=== PATIENT | female | born 1950 | race Caucasian/White ===

== ENCOUNTER 2017-05-28 19:49 | Emergency (ER) | payer OTHER ==
[~2017-05-28] VITALS: Ht 160 cm; Wt 113.4 kg
[~2017-05-28 19:49] MED LIST: ASPCH81X PO; FURO-85 PO; LISI40TA PO; METO-596 PO; RIVA1TAB4 PO
[2017-05-28 19:59] VITALS: TEMP 36.8; Ht 160 cm; Wt 113.4 kg
[2017-05-28] MEDS ORDERED: SODIUM CHLORIDE 0.9% 1000ML 1,000 ML IV STA (20:40)
[2017-05-28] MEDS ORDERED: SODIUM CHLORIDE 0.9% 1000ML 500 ML IV STA (20:40)
[2017-05-28] MEDS ORDERED: OPTIRAY 320 IV PRN (21:00)
[2017-05-28 21:26] LABS: BASO % 0.1 %; BASO ABS # 0.01 K/uL (0-0.2); COMPLETE YES; EOS % 0.6 %; HEMATOCRIT 37.8 % (37-47); IG% 0.4 %; LYMPH % 13.6 %; MEAN CELL VOLUME 79.2 fL (80-100); MEAN CORPUSCULAR HEMOGLOBIN 26.2 pg (25-34); MEAN CORPUSCULAR HGB CONC 33.1 g/dl (32-36); MEAN PLATELET VOLUME 10.3 fL (7.4-10.4); MONO % 12.9 %; NEUT % 72.4 %; PLATELET COUNT 252 K/uL (130-400); RED BLOOD COUNT 4.77 M/uL (4.2-5.4); WHITE BLOOD COUNT 8.11 K/uL (4.8-10.8)
[2017-05-28 21:47] LABS: BUN/CREATININE RATIO 16.7 (10-20); CALCIUM 8.8 mg/dl (8.5-10.1); CREATININE 0.85 mg/dl (0.60-1.20); POTASSIUM 3.9 mmol/L (3.5-5.1)
[2017-05-28 21:50] LABS: ALB/GLOB RATIO 0.7 (0.9-2)
--- NOTE | 2017-05-28 22:35 | DIAGNOSTIC IMAGING REPORT ---
ABD/PELVIS IV CONTRAST ONLY CT DOSE: 1572.88 mGy.cm HISTORY: Pain. Hernia. EVAL ABD PAIN/HERNIA/OBSTRUCTION TECHNIQUE: Multiaxial CT images of the abdomen and pelvis were performed following the use of intravenous contrast. A dose lowering technique was utilized adhering to the principles of ALARA. COMPARISON STUDY: 04/06/2012 FINDINGS: small nodular density left lung base unchanged from the prior study. Lung bases otherwise are clear. 1 cm hypodensity superior right hepatic lobe not present on the prior exam. Liver is otherwise slightly heterogeneous. Mild atrophy left kidney. Hypodensity posterior and anterior aspect inferior spleen. These are not present previously. Ventral hernia containing several nonobstructive loops of bowel. This appears to have partial repair. Lower right paracentral hernia containing loops of small bowel as well as colon also considered to be a nonobstructive finding. Bladder is midline but relatively collapsed. Bowel pattern within the abdomen and pelvis is considered nonobstructive. Subtle wall thickening of components of the a sigmoid colon which is right pelvic in location colon.. This may indicate a low-grade colitis no evidence for abscess collection or obstruction . IMPRESSION: 1. Mild colitis of the sigmoid colon. 2. No evidence for abscess collection or obstruction. 3. 2 ventral hernias 4. Several small hypodensities of the liver as well as spleen considered nonspecific considered to be nonobstructing. The above report was generated using voice recognition software. It may contain grammatical, syntax or spelling errors. Electronically signed by: Silverio Whalen M.D. 05/28/2017 10:34 PM Dictated Date/Time: 05/28/2017 10:27 PM
[2017-05-28 22:50] LABS: URINE APPEARANCE CLEAR (CLEAR); URINE BILIRUBIN NEG (NEG); URINE COLOR YELLOW; URINE EPITHELIAL CELL AUTO >30 /lpf (0-5); URINE NITRITE NEG (NEG); URINE PH 6.5 (4.5-7.5); UROBILINOGEN POS (NEG)
[2017-05-28 22:51] LABS: MANUAL MICROSCOPIC REQUIRED? NO; REVIEW REQ? NO
--- NOTE | 2017-05-28 23:03 | EMERGENCY ROOM VISIT NOTE ---
History First contact with patient: 20:13 Chief Complaint: ABDOMINAL PAIN Stated Complaint: PAIN Nursing Triage Summary: Patient reports severe pain in lower abdomen, states "I have a hernia and I might have ripped it" Patient states that she read on the internet that if she is having pain that it could be twisted and she wants to know if it's twisted. History of Present Illness Patient is a 66-year-old white female who presents to emergency department for evaluation of right lower abdominal pain that started yesterday. Patient has a history of morbid obesity and is status post gastric bypass surgery, with subsequent revision. She has 2 known ventral hernias. She states that she did have an attempt of a hernia repair with mesh, which failed, and subsequently the mesh was removed. She states that yesterday evening after she returned home from work, she noted discomfort in the right lower abdomen at the site of her lower hernia. She thought that she maybe twisted wrong rib did some heavy lifting and "tore the hernia." She states the pain was very severe caused her to feel nauseous and recall is a cold sweat. At its worst she would've rated it a 10/10. She states that she recently had some dental work and had Vicodin from the dentist. She took a total of 3 tablets last evening which knocked her out. When she woke up this morning, the pain was still present, but was not as severe. She rates it a 7/10 presently. She states it is located over the site of the hernia, and does not radiate. She put herself on clear liquids today, has not had any nausea or vomiting. She had some diarrhea last evening but otherwise a normal bowel movement yesterday morning. She denies any urinary symptoms. She denies a prior history of bowel obstructions. She's not had a fever. Review of Systems Review of systems as per HPI. All other systems reviewed were negative. 10 systems reviewed. Past Medical/Surgical History Medical Problems: (1) A-fib (2) Atrial fibrillation (3) CHF (congestive heart failure) (4) Chronic Hepatitis C W/O Hepatic Coma (5) Conjunctivitis, right eye (6) Depress Disorder-Unspec (7) Dermatitis (8) Dyspnea (9) Facial abrasion (10) Fluid overload (11) HTN (hypertension) (12) Hx Of Breast Malignancy (13) Hypertension (14) Hypertension Nos (15) Left shoulder pain (16) Morbid Obesity (17) Physical deconditioning (18) Pyelonephritis Nos (19) Wrist sprain Surgical Problems: (1) History of hernia repair (2) Hx of cholecystectomy (3) Intestinal Bypass Status Electronic medical records are reviewed and summarized as above/below. See Problem List. Family History Diabetes mellitus Heart disease Hypertension Social History Smoking Status: Never Smoker Alcohol Use: none Drug Use: none Marital Status: single Housing Status: unknown Occupation Status: employed Current/Historical Medications Scheduled Aspirin (Aspirin Chewable), 243 MG PO DAILY Lisinopril (Zestril), 40 MG PO DAILY Metoprolol Tartrate (Lopressor), 100 MG PO DAILY Physical Exam Vital Signs Date Time Temp Pulse Resp B/P (MAP) Pulse Ox O2 Delivery O2 Flow Rate FiO2 05/28/17 21:51 87 20 137/98 98 Room Air 05/28/17 19:59 36.8 98 18 161/106 97 Room Air Physical Exam CONSTITUTIONAL: Patient is obese 66-year-old white female who is awake and alert and in no acute distress. NECK: No bruits auscultated. Supple without lymphadenopathy. No thyromegaly. No meningeal signs. Full active range of motion without discomfort. CARDIOVASCULAR: Regular rate and rhythm, with normal S1 and S2, no murmur or gallop or rub is heard. No carotid bruits auscultated. No JVD. Peripheral pulses easy to palpable. RESPIRATORY: Breath sounds equal and clear to auscultation without wheezes, rales, or rhonchi heard. Full and equal chest expansion without accessory muscle use or retractions. GI: Bowel sounds are present. Multiple well-healed surgical scars are noted. Abdomen is soft, nontender, nondistended. Palpable ventral hernia noted in the epigastric region. She also has a right paracentral hernia noted in the mid abdomen. Hernias are soft, nontender. No organomegaly. No pulsatile masses. No guarding or rebound. MUSCULOSKELETAL: Full range of motion of extremities x 4 with good strength. No cyanosis, edema, joint tenderness or swelling. No deformity. INTEGUMENTARY: No lesions or rash, normal skin turgor. NEUROLOGICAL: Alert, oriented, and cooperative. Cranial nerves, sensation and strength grossly intact. Pupils round, equal, and react to light, EOMs are full. LYMPH: No lymphadenopathy. Medical Decision & Procedures ER Provider Diagnostic Interpretation: ABD/PELVIS IV CONTRAST ONLY CT DOSE: 1572.88 mGy.cm HISTORY: Pain. Hernia. EVAL ABD PAIN/HERNIA/OBSTRUCTION TECHNIQUE: Multiaxial CT images of the abdomen and pelvis were performed following the use of intravenous contrast. A dose lowering technique was utilized adhering to the principles of ALARA. COMPARISON STUDY: 04/06/2012 FINDINGS: small nodular density left lung base unchanged from the prior study. Lung bases otherwise are clear. 1 cm hypodensity superior right hepatic lobe not present on the prior exam. Liver is otherwise slightly heterogeneous. Mild atrophy left kidney. Hypodensity posterior and anterior aspect inferior spleen. These are not present previously. Ventral hernia containing several nonobstructive loops of bowel. This appears to have partial repair. Lower right paracentral hernia containing loops of small bowel as well as colon also considered to be a nonobstructive finding. Bladder is midline but relatively collapsed. Bowel pattern within the abdomen and pelvis is considered nonobstructive. Subtle wall thickening of components of the a sigmoid colon which is right pelvic in location colon.. This may indicate a low-grade colitis no evidence for abscess collection or obstruction . IMPRESSION: 1. Mild colitis of the sigmoid colon. 2. No evidence for abscess collection or obstruction. 3. 2 ventral hernias 4. Several small hypodensities of the liver as well as spleen considered nonspecific considered to be nonobstructing. Laboratory Results 05/28/17 21:16 Red Blood Count 4.77, Mean Corpuscular Volume 79.2, Mean Corpuscular Hemoglobin 26.2, Mean Corpuscular Hemoglobin Concent 33.1, Mean Platelet Volume 10.3, Neutrophils (%) (Auto) 72.4, Lymphocytes (%) (Auto) 13.6, Monocytes (%) (Auto) 12.9, Eosinophils (%) (Auto) 0.6, Basophils (%) (Auto) 0.1, Neutrophils # (Auto ) 5.87, Lymphocytes # (Auto) 1.10, Monocytes # (Auto) 1.05, Eosinophils # (Auto ) 0.05, Basophils # (Auto) 0.01 05/28/17 21:16 Test 05/28/17 21:16 05/28/17 22:25 White Blood Count 8.11 K/uL (4.8-10.8) Red Blood Count 4.77 M/uL (4.2-5.4) Hemoglobin 12.5 g/dL (12.0-16.0) Hematocrit 37.8 % (37-47) Mean Corpuscular Volume 79.2 fL (80-100) Mean Corpuscular Hemoglobin 26.2 pg (25-34) Mean Corpuscular Hemoglobin Concent 33.1 g/dl (32-36) Platelet Count 252 K/uL (130-400) Mean Platelet Volume 10.3 fL (7.4-10.4) Neutrophils (%) (Auto) 72.4 % Lymphocytes (%) (Auto) 13.6 % Monocytes (%) (Auto) 12.9 % Eosinophils (%) (Auto) 0.6 % Basophils (%) (Auto) 0.1 % Neutrophils # (Auto) 5.87 K/uL (1.4-6.5) Lymphocytes # (Auto) 1.10 K/uL (1.2-3.4) Monocytes # (Auto) 1.05 K/uL (0.11-0.59) Eosinophils # (Auto) 0.05 K/uL (0-0.5) Basophils # (Auto) 0.01 K/uL (0-0.2) RDW Standard Deviation 52.1 fL (36.4-46.3) RDW Coefficient of Variation 18.1 % (11.5-14.5) Immature Granulocyte % (Auto) 0.4 % Immature Granulocyte # (Auto) 0.03 K/uL (0.00-0.02) Anion Gap 5.0 mmol/L (3-11) Est Creatinine Clear Calc Drug Dose 81.1 ml/min Estimated GFR () 83.9 Estimated GFR (Non- 72.4 BUN/Creatinine Ratio 16.7 (10-20) Calcium Level 8.8 mg/dl (8.5-10.1) Total Bilirubin 2.9 mg/dl (0.2-1) Aspartate Amino Transf (AST/SGOT) 24 U/L (15-37) Alanine Aminotransferase (ALT/SGPT) 19 U/L (12-78) Alkaline Phosphatase 95 U/L (45-117) Total Protein 7.1 gm/dl (6.4-8.2) Albumin 3.0 gm/dl (3.4-5.0) Globulin 4.1 gm/dl (2.5-4.0) Albumin/Globulin Ratio 0.7 (0.9-2) Lipase 113 U/L (73-393) Urine Color YELLOW Urine Appearance CLEAR (CLEAR) Urine pH 6.5 (4.5-7.5) Urine Specific [place] 1.010 (1.000-1.030) Urine Protein NEG (NEG) Urine Glucose (UA) NEG (NEG) Urine Ketones NEG (NEG) Urine Occult Blood NEG (NEG) Urine Nitrite NEG (NEG) Urine Bilirubin NEG (NEG) Urine Urobilinogen POS (NEG) Urine Leukocyte Esterase MODERATE (NEG) Urine WBC (Auto) 10-30 /hpf (0-5) Urine RBC (Auto) 0-4 /hpf (0-4) Urine Hyaline Casts (Auto) 1-5 /lpf (0-5) Urine Epithelial Cells (Auto) >30 /lpf (0-5) Urine Bacteria (Auto) NEG (NEG) Medications Administered Medications (Trade) Dose Ordered Sig/Miranda Route Start Time Stop Time Status Last Admin Dose Admin Sodium Chloride 500 ml @ 999 mls/hr Q31M STAT IV 05/28/17 20:40 05/28/17 21:10 DC 05/28/17 20:40 999 MLS/HR Sodium Chloride 1,000 ml @ 250 mls/hr Q4H STAT IV 05/28/17 20:40 05/29/17 00:39 05/28/17 21:04 250 MLS/HR ED Course The patient was seen and evaluated as above. Her old records are reviewed. IV lock was initiated and she was hydrated with normal saline solution. CBC with differential, CMP, lipase and urinalysis were collected. CT scan of the abdomen and pelvis with IV contrast was ordered to evaluate her abdominal pain. Laboratory studies noted a normal white count at 8100, no left shift noted. She is not anemic. Platelet count is normal. Chemistries noted normal electrolytes and renal functions. She has slight elevation of her total bilirubin, remainder of her LFTs are within normal limits. Lipase is not elevated. Renal function is normal. Urinalysis notes moderate leuk esterase and WBCs with greater than 30 epithelial cells indicative of contamination. No other indicators for infection are noted. CT scan noted a ventral hernia containing several nonobstructive loops of bowel and a lower right paracentral hernia containing loops of small bowel and colon, also nonobstructive in nature. There was subtle wall thickening of components of the sigmoid colon which is in the right pelvic location, could be indicative of a low-grade colitis. There is no evidence for abscess collection or obstruction. The patient was reassessed. She was made aware of the results of her laboratory and diagnostic imaging studies. Given the findings consistent with a sigmoid colitis, with a sigmoid noted in the right pelvic region, this could correlate with the patient's pain. She certainly does not have any evidence for incarcerated hernia, no bowel obstruction secondary to the hernias, which was her primary concern. The remainder of her abdominal CT is otherwise unremarkable. Laboratory and diagnostic imaging studies were reviewed with attending physician. Conservative care measures were discussed. She was encouraged to follow a clear liquid diet, use [id number] medications, and follow closely with her primary care provider this week for recheck. She expressed understanding of this and was agreeable. Differential diagnoses entertained included UTI, pyelonephritis, renal colic, bowel obstruction, incarcerated hernia, perforation, abscess, appendicitis, ovarian cyst, ovarian torsion, mass or malignancy, infectious versus inflammatory colitis/enteritis, food borne illness, among others. Medical Decision See Emergency Department course. Medication Reconcilliation Current Medication List: was personally reviewed by me Blood Pressure Screening Patient's blood pressure: Elevated blood pressure Blood pressure disposition: Elevated BP felt to be situational Impression Primary Impression: Right sided abdominal pain Departure Information Referrals Simón Bobo D.ONan (PCP) Patient Instructions [facility] Additional Instructions Acetaminophen(Tylenol) may be used for fever or pain. Use 1000mg every eight hours as needed. Avoid using more than 3000mg in a 24 hour period. This is available over the counter. Rest and drink plenty of fluids as tolerated. Slow sips of water or sports drinks are recommended instead of large amounts all at once. Continue current medications. Once your stomach is settled start with a clear liquid diet (jello, soup broth, etc.) and then advance as tolerated. You should avoid full, heavy meals for about 24 hrs from the time your symptoms resolved. Return to the ER immediately for worsening or persistent abdominal pain, vomiting, fevers, chest pains, difficulty breathing, black or bloody stools, worsening of your condition, or as needed. Follow up with your primary physician in 1-2 days for a recheck of your current condition.
--- NOTE | 2017-05-28 23:06 | EMERGENCY ROOM VISIT NOTE ---
ED Visit Note First contact with patient: 20:13 This Patient was discussed with the physician Case Management Assistant, Marilynn Méndez PA-C. The pertinent historical and physical exam findings were confirmed. I agree with the studies ordered and with the interpretations of these studies. I agree with the disposition and care plan.
[2017-05-28 23:19] VITALS: BP 151/79; PULSE 84; O2SAT 97
== END 2017-05-28 23:19 | disposition home or self-care (01) ==
LOC: C.EDB 19:50 → C.EDA 23:19
DX: R10.84 Generalized abdominal pain (principal); I48.91 Unspecified atrial fibrillation; I50.9 Heart failure, unspecified; F32.9 Major depressive disorder, single episode, unspecified; I10 Essential (primary) hypertension; E66.9 Obesity, unspecified; Z83.3 Family history of diabetes mellitus; Z82.49 Family history of ischemic heart disease and other diseases of the circulatory system; Z79.82 Long term (current) use of aspirin

== ENCOUNTER → 2017-11-25 | Outpatient (CLI) | payer OTHER ==
[~2017-11-25] MED LIST changes: +CIPR-255 PO; -FURO-85 PO; +MECL1TAB42 PO; -RIVA1TAB4 PO; +SULF800T23 PO
--- NOTE | 2017-11-25 11:03 | DIAGNOSTIC IMAGING REPORT ---
GI SERIES W/O KUB CLINICAL HISTORY: W/ KUBnausea. Vomiting. COMPARISON STUDY: None FLUOROSCOPY TIME: 1.9 minutes. FINDINGS: Patient initiates swallowing function well. There is evidence for a traction diverticulum the anterior aspect of the lower thoracic esophagus. Inferior to this is what appears to be a small linear contrast collection immediately adjacent and attached to the distal esophagus medially proximal to the gastroesophageal junction. Possibility of a small laceration is considered. Contrast does not extend further from the lumen suggests this potentially is a walled off laceration versus postoperative change. There is good flow of contrast to the small bowel. There are no obstructive changes. Proximal small bowel is unremarkable. IMPRESSION: 1. Postoperative changes consistent with a prior gastroplasty 2. Immediately superior to the gastroesophageal junction is what appears to be a small short segment laceration of the posterior esophageal mucosa . This may also represent components of a postoperative basis of the operative procedure. No evidence for free spill of contrast extrinsic to this site. Endoscopic evaluation is suggested. 3. 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 The above report was generated using voice recognition software. It may contain grammatical, syntax or spelling errors. Electronically signed by: Silverio Whalen M.D. 11/25/2017 11:02 AM Dictated Date/Time: 11/25/2017 10:59 AM
== END | disposition home or self-care (01) ==
LOC: C.RAD 10:16
PROVIDERS: ATTEND Surgery
DX: K91.1 Postgastric surgery syndromes (principal); K22.5 Diverticulum of esophagus, acquired

== ENCOUNTER 2017-11-27 17:40 | Emergency (ER) | payer OTHER ==
[~2017-11-27] VITALS: Ht 160 cm; Wt 112.3 kg
[~2017-11-27 17:40] MED LIST changes: -CIPR-255 PO; -MECL1TAB42 PO
[2017-11-27 17:57] VITALS: TEMP 36.9
[2017-11-27] MEDS ORDERED: SODIUM CHLORIDE 0.9% 1000ML 1,000 ML IV STA (18:40)
--- NOTE | 2017-11-27 18:42 | EMERGENCY ROOM VISIT NOTE ---
History Report prepared by Melinda: Chepe Mahan Under the Supervision of: Dr. Darren Rios M.D. First contact with patient: 18:19 Chief Complaint: DIZZY Stated Complaint: DIZZY, COLD SWEAT Nursing Triage Summary: Patient woke up today and became really dizzy. Patient states she is only dizzy when she tries to stand up. History of anemia with need for 4 previous transfusions. Currently being treated for a staph infection on her foot. History of Present Illness The patient is a 67 year old female who presents to the Emergency Room with complaints of being intermittent dizzy since yesterday. She describes the dizziness as "the room spinning." She notes that she also became nauseous and diaphoretic, but did not vomit. When she sit up from a lying position she gets a headache. The patient states that she has been anemic in the past and has had blood transfusions. Source of History: patient Onset: [place] Position: head Quality: other (Dizziness) Timing: intermittent Associated Symptoms: + diaphoresis, + nausea, No vomiting Review of Systems See HPI for pertinent positives & negatives. A total of 10 systems reviewed and were otherwise negative. Past Medical & Surgical Medical Problems: (1) A-fib (2) Atrial fibrillation (3) CHF (congestive heart failure) (4) Chronic Hepatitis C W/O Hepatic Coma (5) Conjunctivitis, right eye (6) Depress Disorder-Unspec (7) Dermatitis (8) Dyspnea (9) Facial abrasion (10) Fluid overload (11) HTN (hypertension) (12) Hx Of Breast Malignancy (13) Hypertension (14) Hypertension Nos (15) Left shoulder pain (16) Morbid Obesity (17) Physical deconditioning (18) Pyelonephritis Nos (19) Wrist sprain Surgical Problems: (1) History of hernia repair (2) Hx of cholecystectomy (3) Intestinal Bypass Status Family History Diabetes mellitus Heart disease Hypertension Social History Smoking Status: Never Smoker Alcohol Use: none Drug Use: none Marital Status: single Housing Status: unknown Occupation Status: employed Current/Historical Medications Scheduled Aspirin (Aspirin Chewable), 243 MG PO DAILY Ciprofloxacin Hcl (Cipro), 1 TAB PO BID Lisinopril (Zestril), 40 MG PO DAILY Metoprolol Tartrate (Lopressor), 100 MG PO DAILY Sulfa/Trimethoprim (Bactrim Ds 800MG/160MG), 1 TAB PO BID Scheduled PRN Meclizine Hcl (Meclizine Hcl), 1 TAB PO TID PRN for Dizziness or Vertigo Allergies Coded Allergies: Penicillins (Verified Allergy, Unknown, POSSIBLE REACTION, 11/27/17) Nickel (Unverified Adverse Reaction, Severe, ITCHING, 11/27/17) Physical Exam Vital Signs Date Time Temp Pulse Resp B/P (MAP) Pulse Ox O2 Delivery O2 Flow Rate FiO2 11/27/17 21:17 77 22 187/105 100 11/27/17 20:13 69 180/97 78 175/97 74 195/80 11/27/17 18:58 94 Room Air 11/27/17 18:58 94 Room Air 11/27/17 17:57 36.9 80 16 134/89 94 Room Air Physical Exam GENERAL: Awake, alert, well-appearing, in no acute distress HENT: Normocephalic, atraumatic. Oropharynx unremarkable. EYES: Normal conjunctiva. Sclera non-icteric. NECK: Supple. No nuchal rigidity. FROM. No JVD. RESPIRATORY: Clear to auscultation. CARDIAC: Regular rate, normal rhythm. Extremities warm and well perfused. Pulses equal. ABDOMEN: Soft, non-distended. No tenderness to palpation. No rebound or guarding. No masses. RECTAL: Deferred. MUSCULOSKELETAL: Chest examination reveals no tenderness. The back is symmetrical on inspection without obvious abnormality. There is no CVA tenderness to palpation. No joint edema. LOWER EXTREMITIES: Calves are equal size bilaterally and non-tender. No edema. No discoloration. NEURO: Normal sensorium. No sensory or motor deficits noted. SKIN: No rash or jaundice noted. Medical Decision & Procedures ER Provider Diagnostic Interpretation: Radiology results as stated below per my review and radiologist interpretation: HEAD WITHOUT CONTRAST (CT) CLINICAL HISTORY: 67 years-old Female with Pt c/o dizziness. Acute dizziness TECHNIQUE: Multiple axial CT images of the head were obtained without contrast. A dose lowering technique was utilized adhering to the principles of ALARA. CT DOSE: 614.27 mGy.cm COMPARISON: None. FINDINGS: No acute intracranial hemorrhage, midline shift, intracranial mass, hydrocephalus, territorial ischemia or abnormal extra-axial collection. Mild cerebral atrophy. Moderate degree of patchy multifocal ill-defined low-attenuation within the subcortical, deep and periventricular white matter of the cerebral hemispheres bilaterally. The calvarium is intact. 6 mm lucent lesion of the left frontal calvarium is likely benign with thin zone of transition. Hyperostosis frontalis internus. The paranasal sinuses, mastoid air cells, and middle ear cavities are clear. Soft tissues and orbits appear unremarkable. IMPRESSION: 1. No acute intracranial abnormality. 2. Moderate degree of patchy multifocal ill-defined low-attenuation within the subcortical, deep and periventricular white matter of the cerebral hemispheres bilaterally suggests chronic microvascular ischemic changes. The above report was generated using voice recognition software. It may contain grammatical, syntax or spelling errors. Electronically signed by: Ruiz Salcedo M.D. 11/27/2017 7:18 PM Dictated Date/Time: 11/27/2017 7:15 PM Laboratory Results 11/27/17 20:08 Red Blood Count 4.77, Mean Corpuscular Volume 80.5, Mean Corpuscular Hemoglobin 25.8, Mean Corpuscular Hemoglobin Concent 32.0, Mean Platelet Volume 10.5, Neutrophils (%) (Auto) 73.9, Lymphocytes (%) (Auto) 17.5, Monocytes (%) (Auto) 7.2, Eosinophils (%) (Auto) 1.0, Basophils (%) (Auto) 0.2, Neutrophils # (Auto) 4.66, Lymphocytes # (Auto) 1.10, Monocytes # (Auto) 0.45, Eosinophils # (Auto) 0.06, Basophils # (Auto) 0.01 11/27/17 20:08 Test 11/27/17 20:08 11/27/17 20:11 11/27/17 20:20 White Blood Count 6.29 K/uL (4.8-10.8) Red Blood Count 4.77 M/uL (4.2-5.4) Hemoglobin 12.3 g/dL (12.0-16.0) Hematocrit 38.4 % (37-47) Mean Corpuscular Volume 80.5 fL (80-100) Mean Corpuscular Hemoglobin 25.8 pg (25-34) Mean Corpuscular Hemoglobin Concent 32.0 g/dl (32-36) Platelet Count 248 K/uL (130-400) Mean Platelet Volume 10.5 fL (7.4-10.4) Neutrophils (%) (Auto) 73.9 % Lymphocytes (%) (Auto) 17.5 % Monocytes (%) (Auto) 7.2 % Eosinophils (%) (Auto) 1.0 % Basophils (%) (Auto) 0.2 % Neutrophils # (Auto) 4.66 K/uL (1.4-6.5) Lymphocytes # (Auto) 1.10 K/uL (1.2-3.4) Monocytes # (Auto) 0.45 K/uL (0.11-0.59) Eosinophils # (Auto) 0.06 K/uL (0-0.5) Basophils # (Auto) 0.01 K/uL (0-0.2) RDW Standard Deviation 56.1 fL (36.4-46.3) RDW Coefficient of Variation 19.1 % (11.5-14.5) Immature Granulocyte % (Auto) 0.2 % Immature Granulocyte # (Auto) 0.01 K/uL (0.00-0.02) Anion Gap 7.0 mmol/L (3-11) Est Creatinine Clear Calc Drug Dose 76.0 ml/min Estimated GFR () 78.8 Estimated GFR (Non- 68.0 BUN/Creatinine Ratio 12.4 (10-20) Calcium Level 8.8 mg/dl (8.5-10.1) Total Bilirubin 2.8 mg/dl (0.2-1) Direct Bilirubin 0.7 mg/dl (0-0.2) Aspartate Amino Transf (AST/SGOT) 26 U/L (15-37) Alanine Aminotransferase (ALT/SGPT) 22 U/L (12-78) Alkaline Phosphatase 103 U/L (45-117) Total Protein 8.1 gm/dl (6.4-8.2) Albumin 3.6 gm/dl (3.4-5.0) Thyroid Stimulating Hormone (TSH) 1.880 uIu/ml (0.300-4.500) Bedside Glucose 110 mg/dl (70-90) Urine Color YELLOW Urine Appearance CLEAR (CLEAR) Urine pH 6.5 (4.5-7.5) Urine Specific [place] 1.009 (1.000-1.030) Urine Protein NEG (NEG) Urine Glucose (UA) NEG (NEG) Urine Ketones NEG (NEG) Urine Occult Blood NEG (NEG) Urine Nitrite NEG (NEG) Urine Bilirubin NEG (NEG) Urine Urobilinogen NEG (NEG) Urine Leukocyte Esterase SMALL (NEG) Urine WBC (Auto) 5-10 /hpf (0-5) Urine RBC (Auto) 0-4 /hpf (0-4) Urine Hyaline Casts (Auto) 1-5 /lpf (0-5) Urine Epithelial Cells (Auto) >30 /lpf (0-5) Urine Bacteria (Auto) NEG (NEG) Labs reviewed by ED physician. Medications Administered Medications (Trade) Dose Ordered Sig/Miranda Route Start Time Stop Time Status Last Admin Dose Admin Sodium Chloride 1,000 ml @ 999 mls/hr Q1H1M STAT IV 11/27/17 18:40 11/27/17 19:40 DC 11/27/17 18:40 999 MLS/HR Meclizine HCl (Antivert Tab) 25 mg NOW STAT PO 11/27/17 18:43 11/27/17 18:44 DC 11/27/17 18:43 25 MG Ciprofloxacin (Cipro Tab) 500 mg NOW STAT PO 11/27/17 20:38 11/27/17 20:39 DC 11/27/17 20:55 500 MG ECG Per My Interpretation Indication: other (Dizzy) Rate (beats per minute): 61 Rhythm: atrial fibrillation Findings: T-wave inversion (Lateral) Comparison ECG Date: 08/01/2016 ED Course 1828: Past medical records reviewed. The patient was evaluated in room B2. A complete history and physical examination was performed. 0: Ordered Sodium Chloride 1000 mL @ 999 mL/hr IV. 1842: Ordered Meclizine HCl 25 mg PO. 2037: Ordered Ciprofloxacin 500 mg PO. 2101: Upon reexamination the patient is resting. I discussed results and treatment plan with the patient. She verbalizes agreement and understanding. The patient is ready for discharge. Medical Decision Differential diagnosis: Etiologies such as benign positional vertigo, dehydration, hypovolemia, anemia, tumor, infection, hypoglycemia, electrolyte abnormalities, cardiac sources, intracerebral event, toxicologic, neurologic, as well as others were entertained. This is a 67-year-old female who presents emergency department complaining of dizziness. The patient's story is consistent with benign positional vertigo. She has a normal CAT scan of the head. I will note the patient is in atrial fibrillation but she has been seen by her fruit cutter for previously. The patient does not wish to be on any blood thinners but takes an aspirin daily. She was given a normal saline bolus as well as meclizine here in the emergency department. Repeat examination revealed improvement in the patient's symptoms. The patient is already on Bactrim therefore I will not start any antibiotics pending urine culture results. The patient is feeling better and I feel can be safely discharged home on meclizine. Patient was in agreement with the treatment plan. Medication Reconcilliation Current Medication List: was personally reviewed by me Blood Pressure Screening Patient's blood pressure: Elevated blood pressure Blood pressure disposition: Referred to PCP Impression Primary Impression: UTI (urinary tract infection) Additional Impression: Vertigo Scribe Attestation The scribe's documentation has been prepared under my direction and personally reviewed by me in its entirety. I confirm that the note above accurately reflects all work, treatment, procedures, and medical decision making performed by me. Departure Information Dispostion Home / Self-Care Prescriptions Ciprofloxacin Hcl (CIPRO) 500 Mg Tab 1 TAB PO BID for 10 Days, #20 TAB Prov: Darren Rios MD 11/27/17 Meclizine Hcl (MECLIZINE HCL) 25 Mg Tab 1 TAB PO TID Y for Dizziness or Vertigo for 10 Days, #30 TAB Prov: Darren Rios MD 11/27/17 Referrals No Doctor, Assigned (PCP) Forms HOME CARE DOCUMENTATION FORM, IMPORTANT VISIT INFORMATION Patient Instructions My [facility] Additional Instructions You have been examined and treated today on an emergency basis only. This is not a substitute for, or an effort to provide, complete comprehensive medical care. It is impossible to recognize and treat all injuries or illnesses in a single emergency department visit. It is therefore important that you follow up closely with Dr Ocasio. Call as soon as possible for an appointment. Thank you for your time and consideration. I look forward to speaking with you again soon. Please don't hesitate to call us if you have any questions. Problem Qualifiers Primary Impression: UTI (urinary tract infection) Urinary tract infection type: acute cystitis Hematuria presence: with hematuria Qualified Codes: N30.01 - Acute cystitis with hematuria
[2017-11-27] MEDS ORDERED: MECLIZINE HCL 25 MG TAB PO STA (18:43)
[2017-11-27 18:58] VITALS: O2SAT 94; Ht 160 cm; Wt 112.3 kg
--- NOTE | 2017-11-27 19:19 | DIAGNOSTIC IMAGING REPORT ---
HEAD WITHOUT CONTRAST (CT) CLINICAL HISTORY: 67 years-old Female with Pt c/o dizziness. Acute dizziness TECHNIQUE: Multiple axial CT images of the head were obtained without contrast. A dose lowering technique was utilized adhering to the principles of ALARA. CT DOSE: 614.27 mGy.cm COMPARISON: None. FINDINGS: No acute intracranial hemorrhage, midline shift, intracranial mass, hydrocephalus, territorial ischemia or abnormal extra-axial collection. Mild cerebral atrophy. Moderate degree of patchy multifocal ill-defined low-attenuation within the subcortical, deep and periventricular white matter of the cerebral hemispheres bilaterally. The calvarium is intact. 6 mm lucent lesion of the left frontal calvarium is likely benign with thin zone of transition. Hyperostosis frontalis internus. The paranasal sinuses, mastoid air cells, and middle ear cavities are clear. Soft tissues and orbits appear unremarkable. IMPRESSION: 1. No acute intracranial abnormality. 2. Moderate degree of patchy multifocal ill-defined low-attenuation within the subcortical, deep and periventricular white matter of the cerebral hemispheres bilaterally suggests chronic microvascular ischemic changes. The above report was generated using voice recognition software. It may contain grammatical, syntax or spelling errors. Electronically signed by: Ruiz Salcedo M.D. 11/27/2017 7:18 PM Dictated Date/Time: 11/27/2017 7:15 PM
[2017-11-27 20:23] LABS: BASO % 0.2 %; BASO ABS # 0.01 K/uL (0-0.2); EOS ABS # 0.06 K/uL (0-0.5); HEMATOCRIT 38.4 % (37-47); HEMOGLOBIN 12.3 g/dL (12.0-16.0); IG# 0.01 K/uL (0.00-0.02); LYMPH % 17.5 %; MEAN CELL VOLUME 80.5 fL (80-100); MEAN CORPUSCULAR HEMOGLOBIN 25.8 pg (25-34); MEAN PLATELET VOLUME 10.5 fL (7.4-10.4); MONO % 7.2 %; MONO ABS # 0.45 K/uL (0.11-0.59); NEUT % 73.9 %; NEUT ABS # 4.66 K/uL (1.4-6.5); PLATELET COUNT 248 K/uL (130-400); RED CELL DISTRIBUTION WIDTH CV 19.1 % (11.5-14.5); RED CELL DISTRIBUTION WIDTH SD 56.1 fL (36.4-46.3); WHITE BLOOD COUNT 6.29 K/uL (4.8-10.8)
[2017-11-27] MEDS ORDERED: CIPROFLOXACIN 500 MG TAB PO STA (20:38)
[2017-11-27 20:41] LABS: ALBUMIN 3.6 gm/dl (3.4-5.0); CALCIUM 8.8 mg/dl (8.5-10.1); CREATININE 0.89 mg/dl (0.60-1.20); POTASSIUM 3.6 mmol/L (3.5-5.1)
[2017-11-27 20:52] LABS: TOTAL PROTEIN 8.1 gm/dl (6.4-8.2)
[2017-11-27] MEDS ORDERED: MECL1TAB42 PO (21:00)
[2017-11-27] MEDS ORDERED: CIPR-255 PO (21:00)
[2017-11-27 21:17] VITALS: BP 187/105; PULSE 77; O2SAT 100
== END 2017-11-27 21:18 | disposition home or self-care (01) ==
LOC: C.EDB 17:41
DX: N30.01 Acute cystitis with hematuria (principal); R42 Dizziness and giddiness; I10 Essential (primary) hypertension; I48.91 Unspecified atrial fibrillation; Z85.3 Personal history of malignant neoplasm of breast; Z98.890 Other specified postprocedural states; Z83.3 Family history of diabetes mellitus; Z82.49 Family history of ischemic heart disease and other diseases of the circulatory system; Z79.82 Long term (current) use of aspirin; Z79.899 Other long term (current) drug therapy

== ENCOUNTER 2018-09-09 19:12 | Inpatient (IN) ==
[2018-09-09] MEDS ORDERED: ALBUT/IPRATROP 3MG/0.5MG NEB 3 ML VIAL NEB STA (21:38)
[2018-09-09] MEDS ORDERED: FUROSEMIDE 40 MG/4 ML VIAL IV STA (21:42)
[2018-09-09 22:28] LABS: Mean Corpuscular Hgb Conc 31.6 g/dL (32-36)
--- NOTE | 2018-09-09 22:30 | XRay Report ---
XR chest 1V portable CLINICAL HISTORY: 68 years-old Female presenting with Sepsis. TECHNIQUE: Portable upright AP view of the chest was obtained. COMPARISON: 06/17/2018. FINDINGS: Cardiac silhouette moderately enlarged. Mitral annular calcification. Pulmonary vascular prominence. Mild bronchial wall thickening suggested. Patchy basilar predominant opacity, asymmetrically more pro minent on the right. No large effusion or pneumothorax. Osseous structures normal. Upper abdomen norm al. IMPRESSION: 1. Cardiomegaly with volume overload/congestive change. 2. Asymmetric patchy basilar predominant density on the right. This may represent a focal infiltrate /pneumonia versus asymmetric edema. Electronically signed by: Bebeto Rivers M.D. 09/09/2018 10:29 PM
[2018-09-09] MEDS ORDERED: OSELTAMIVIR PHOSPHATE 75 MG CAP PO STA (22:31)
[2018-09-09 22:37] LABS: INR 1.1 (0.9-1.1); Partial Thromboplastin Ratio 1.1; Partial Thromboplastin Time 28.5 Seconds (21.0-31.0)
[2018-09-09] MEDS ORDERED: cefTRIAXone SODIUM 1,000 MG/50 ML BAG IV STA (22:37)
[2018-09-09] MEDS ORDERED: AZITHROMYCIN 250 MG TAB PO ONE (22:37)
[2018-09-09 22:41] LABS: Hematocrit (blood only) 42.1 % (37-47); Hemoglobin 13.3 g/dL (12.0-16.0); Mean Corpuscular Volume 79.1 fL (80-100); RDW Coefficient of Variation 20.7 % (11.5-14.5); RDW Standard Deviation 59.3 fL (36.4-46.3); Red Blood Count 5.32 M/uL (4.2-5.4); White Blood Count 3.87 K/uL (4.8-10.8)
[2018-09-09 22:45] LABS: Alanine Aminotransferase 25 U/L (12-78); Aspartate Aminotransferase 54 U/L (15-37); Blood Urea Nitrogen 12 mg/dl (7-18); Carbon Dioxide 24 mmol/L (21-32); Chloride 103 mmol/L (98-107); Est GFR (African American) 85.2; Est GFR (Non-African American) 73.5; Glucose 94 mg/dl (70-99); Potassium 3.5 mmol/L (3.5-5.1); Sodium 137 mmol/L (136-145)
[2018-09-09 22:47] LABS: Appearance Urine Clear (Clear); Bacteria Urine Automated Negative (Negative); Bilirubin Urine Negative (Negative); Cast Urine Automated 0 /lpf (0-5); Color Urine Yellow; Glucose Urine UA Negative (Negative); Ketones Urine Negative (Negative); Leukocyte Esterase Urine 1+ (Negative); Nitrite Urine Negative (Negative); Protein Urine Negative (Negative); Specific Gravity Urine 1.007 (1.000-1.030); Urobilinogen Urine Negative (Negative); pH Urine 5.5 (4.5-7.5)
[2018-09-09 22:50] LABS: Albumin Globulin Ratio 0.6 (0.9-2); Alkaline Phosphatase 88 U/L (45-117); Bilirubin,Total 1.2 mg/dl (0.1-1); Globulin 4.6 gm/dl (2.5-4.0); NT Pro B Type Natriuretic Pept 3759 pg/ml (0-900); Total Protein 7.6 gm/dl (6.4-8.2)
[2018-09-09 23:08] LABS: Basophils # (auto) 0.06 K/uL (0-0.2); Basophils % (auto) 1.6 %; Immature Granulocytes # (auto) 0.03 K/uL (0.00-0.02); Immature Granulocytes % (auto) 0.8 %; Lymphocytes # (auto) 0.86 K/uL (1.2-3.4); Lymphocytes % (auto) 22.2 %; Monocytes # (auto) 0.47 K/uL (0.11-0.59); Monocytes % (auto) 12.1 %; Neutrophils # (auto) 2.45 K/uL (1.4-6.5); Neutrophils % (auto) 63.3 %; Ovalocytes 1+; Platelet Count 130 K/uL (130-400); Target Cells 1+
--- NOTE | 2018-09-10 00:29 | Emergency Department Note ---
History of Present Illness General Chief complaint: Respiratory Problems Stated complaint: dizzy History of Present Illness This 68-year-old presents to the ER complaining of dyspnea, productive cough and feeling ill Location: Generalized Quality: Dyspnea Severity: Moderate Duration: Past several days Timing: Past several days Context: Symptoms persisted and patient can barely walk because of the breathing and came in Modifying factors: better with nothing; worse with activity Patient states she lost her healthcare insurance and cannot afford her medications. She has not been taking her Lasix for her CHF. Patient states she is been coughing and feeling more short of breath. She is been feeling ill. Patient denies chest pain, abdominal pain, headache, neck stiffness, vomiting, diarrhea. Home Medications Home Medications Medication Instructions Recorded Confirmed Type Lopressor 50 mg PO DAILYBD 09/09/18 09/09/18 History Lopressor 100 mg PO DAILYBB 09/09/18 09/09/18 History apixaban [Eliquis] 5 mg PO BID 09/09/18 09/09/18 History aspirin 325 mg PO DAILY 09/09/18 09/09/18 History furosemide [Lasix] 40 mg PO DAILY 09/09/18 09/09/18 History lisinopril 40 mg PO DAILY 09/09/18 09/09/18 History Allergies Allergy/AdvReac Type Severity Reaction Status Date / Time Penicillins Allergy Unknown POSSIBLE Verified 06/17/18 22:33 REACTION nickel AdvReac Severe ITCHING Unverified 06/17/18 22:33 gluten AdvReac Unknown Diarrhea Verified 06/18/18 15:39 Past Med/Surg History Medical History Wrist sprain (Resolved) Facial abrasion (Resolved) Left shoulder pain (Resolved) Hypertension (Resolved) Dermatitis (Resolved) Fluid overload (Resolved) Atrial fibrillation (Resolved) Attention and concentration deficit Cancer Hypothyroidism Surgical History H/O bariatric surgery No pertinent past surgical history Family History Other No pertinent family history Social History Current Living Situation: Alone Other Information That Helps Us Care for You: No Feels Safe at Home: Yes Safety Concerns: Feels Safe At This Time Smoking Status: Never smoker Hx Alcohol Use: No Hx Substance Use: No Beliefs That Will Affect Care: None Communication Ability: Effective Review of Systems All systems reviewed & are unremarkable except as noted in HPI & below Physical Exam Vital Signs Vital Signs - 24 hr 09/09/18 20:22 09/09/18 21:48 09/09/18 23:06 Temperature 36.7 C Temperature Source Oral Oral Sepsis Recent Fever Within 48 Hours No Sepsis Action Taken by Nursing No Action Required Pulse Rate 94 H Pulse Rate [Left Apical] 110 H 124 H Pulse Rhythm [Left Apical] Pulse Strength [Left Apical] Respiratory Rate 22 24 24 Respiratory Effort / Characteristics Respiratory Depth Respiratory Pattern Blood Pressure 173/91 H Blood Pressure [Right Arm] 117/116 H 174/92 H Blood Pressure Mean 118 Blood Pressure Mean [Right Arm] 116 119 Blood Pressure Position [Right Arm] Pulse Oximetry 91 92 95 Oxygen Delivery Method Room Air Room Air Room Air 09/09/18 23:57 09/10/18 00:40 Temperature 36.7 C Temperature Source Oral Oral Sepsis Recent Fever Within 48 Hours Sepsis Action Taken by Nursing Pulse Rate Pulse Rate [Left Apical] 130 H 128 H Pulse Rhythm [Left Apical] Irregular Pulse Strength [Left Apical] Normal Respiratory Rate 24 24 Respiratory Effort / Characteristics Non-Labored Spontaneous SOB on Exertion Respiratory Depth Normal Respiratory Pattern Regular Blood Pressure Blood Pressure [Right Arm] 154/120 H 137/110 H Blood Pressure Mean Blood Pressure Mean [Right Arm] 131 119 Blood Pressure Position [Right Arm] Lying Pulse Oximetry 95 93 Oxygen Delivery Method Room Air Room Air VITALS: Vitals are noted on the nurse's note and reviewed by myself. Vital signs O2 sats of 90. GENERAL: White female working to breathe, in mild acute distress SKIN: The skin was without rashes or bruising. There is no tenting of the skin. Capillary reflex less than 2 seconds. HEAD: Normocephalic atraumatic. EARS: External auditory canals clear, tympanic membranes pearly rae without erythema or effusion bilaterally. EYES: Pupils equal round and reactive to light and accommodation. Conjunctivae without injection, sclerae without icterus. Extraocular movements intact. NOSE: Patent, turbinates without inflammation or discharge. No sinus tenderness. MOUTH: Mucous membranes moist. Pharynx without erythema or exudate. Uvula midline. Airway patent. Tongue does not deviate. NECK: Supple without nuchal rigidity. No lymphadenopathy. No thyromegaly. Cervical spine is nontender. No JVD. HEART: Tachycardic rate and rhythm LUNGS: Mild diffuse end expiratory wheezes, bibasilar rales. No retractions or accessory muscle use. ABDOMEN: Positive bowel sounds x 4. Normal tympanic percussion. Soft, nontender, without masses or organomegaly. Veliz sign negative. No guarding or rebound tenderness. No CVA tenderness MUSCULOSKELETAL: No muscle atrophy noted. +1 pitting edema up to mid tib-fib. NEURO: Patient was alert and oriented to person place and time. Normal sensation to light and sharp touch. No focal neurological deficits. Course Administered Medications Doxycycline Hyclate (Vibramycin) 100 mg PO BID HARJIT Stop: 09/17/18 00:53 Last Admin: 09/10/18 01:42 Dose: 100 mg Discontinued Medications Albuterol (Duoneb) 3 ml NEB NOW STA Stop: 09/09/18 21:39 Last Admin: 09/09/18 21:50 Dose: 3 ml Azithromycin (Zithromax) 500 mg PO NOW ONE Stop: 09/09/18 22:38 Last Admin: 09/09/18 22:44 Dose: 500 mg Furosemide (Lasix) 40 mg IV NOW STA Stop: 09/09/18 21:43 Last Admin: 09/09/18 21:53 Dose: 40 mg Ceftriaxone Sodium (Rocephin) 1,000 mg in 50 mls @ 100 mls/hr IV NOW STA Stop: 09/09/18 23:06 Last Infusion: 09/09/18 23:32 Dose: 0 mls/hr Admin: 09/09/18 22:44 Dose: 100 mls/hr Metoprolol Tartrate (Lopressor) 50 mg PO NOW STA Stop: 09/10/18 00:55 Last Admin: 09/10/18 01:42 Dose: 50 mg Oseltamivir Phosphate (Tamiflu) 75 mg PO NOW STA Stop: 09/09/18 22:32 Last Admin: 09/09/18 22:44 Dose: 75 mg Medical Decision Making Medical Records Attestation: I reviewed the patient's medical records. Home Medications Current Medication List: was personally reviewed by me Laboratory Data Attestation: I reviewed the patient's lab results. Result diagrams: 09/09/18 21:58 09/09/18 21:58 Lab Results 09/09/18 09/09/18 09/09/18 Range/Units 21:51 21:58 21:58 WBC 3.87 L (4.8-10.8) K/uL RBC 5.32 (4.2-5.4) M/uL Hgb 13.3 (12.0-16.0) g/dL Hct 42.1 (37-47) % MCV 79.1 L (80-100) fL MCH 25.0 (25-34) pg MCHC 31.6 L (32-36) g/dL RDW Std Deviation 59.3 H (36.4-46.3) fL RDW Coeff of Jennifer 20.7 H (11.5-14.5) % Plt Count 130 (130-400) K/uL Immature Gran % (Auto) 0.8 % Neut % (Auto) 63.3 % Lymph % (Auto) 22.2 % Putnam % (Auto) 12.1 % Eos % (Auto) 0.0 % Baso % (Auto) 1.6 % Immature Gran # (Auto) 0.03 H (0.00-0.02) K/uL Neut # (Auto) 2.45 (1.4-6.5) K/uL Lymph # (Auto) 0.86 L (1.2-3.4) K/uL Putnam # (Auto) 0.47 (0.11-0.59) K/uL Eos # (Auto) 0.00 (0-0.5) K/uL Baso # (Auto) 0.06 (0-0.2) K/uL Platelet Estimate Decreased (Normal) Target Cells 1+ Ovalocytes 1+ PT 11.0 (9.0-12.0) Seconds INR 1.1 (0.9-1.1) APTT 28.5 (21.0-31.0) Seconds PTT Ratio 1.1 Sodium (136-145) mmol/L Potassium (3.5-5.1) mmol/L Chloride (98-107) mmol/L Carbon Dioxide (21-32) mmol/L Anion Gap (3-11) BUN (7-18) mg/dl Creatinine (0.6-1.2) mg/dl Est Cr Clr Drug Dosing Est GFR ( Amer) Est GFR (Non-Af Amer) BUN/Creatinine Ratio (10-20) Glucose (70-99) mg/dl POC Lactic Acid Alpesh (0.90-1.70) mmol/L Calcium (8.5-10.1) mg/dl Magnesium (1.8-2.4) mg/dl Total Bilirubin (0.1-1) mg/dl AST (15-37) U/L ALT (12-78) U/L Alkaline Phosphatase (45-117) U/L POC Troponin I (0-0.045) ng/ml Troponin I (0-0.045) ng/ml NT-Pro-B Natriuret Pep (0-900) pg/ml Total Protein (6.4-8.2) gm/dl Albumin (3.4-5.0) gm/dl Globulin (2.5-4.0) gm/dl Albumin/Globulin Ratio (0.9-2) Urine Color Urine Appearance (Clear) Urine pH (4.5-7.5) Ur Specific Lovejoy (1.000-1.030) Urine Protein (Negative) Urine Glucose (UA) (Negative) Urine Ketones (Negative) Urine Blood (Negative) Urine Nitrite (Negative) Urine Bilirubin (Negative) Urine Urobilinogen (Negative) Ur Leukocyte Esterase (Negative) Urine WBC (Auto) (0-5) /hpf Urine RBC (Auto) (0-4) /hpf U Hyaline Cast (Auto) (0-5) /lpf U Epithel Cells (Auto) (0-5) /lpf Urine Bacteria (Auto) (Negative) Influenza Type A Ag Pos for Influ A A* (Neg) Influenza Type B Ag Neg for Influ B (Neg) 09/09/18 09/09/18 09/09/18 Range/Units 21:58 22:12 22:13 WBC (4.8-10.8) K/uL RBC (4.2-5.4) M/uL Hgb (12.0-16.0) g/dL Hct (37-47) % MCV (80-100) fL MCH (25-34) pg MCHC (32-36) g/dL RDW Std Deviation (36.4-46.3) fL RDW Coeff of Jennifer (11.5-14.5) % Plt Count (130-400) K/uL Immature Gran % (Auto) % Neut % (Auto) % Lymph % (Auto) % Putnam % (Auto) % Eos % (Auto) % Baso % (Auto) % Immature Gran # (Auto) (0.00-0.02) K/uL Neut # (Auto) (1.4-6.5) K/uL Lymph # (Auto) (1.2-3.4) K/uL Putnam # (Auto) (0.11-0.59) K/uL Eos # (Auto) (0-0.5) K/uL Baso # (Auto) (0-0.2) K/uL Platelet Estimate (Normal) Target Cells Ovalocytes PT (9.0-12.0) Seconds INR (0.9-1.1) APTT (21.0-31.0) Seconds PTT Ratio Sodium 137 (136-145) mmol/L Potassium 3.5 (3.5-5.1) mmol/L Chloride 103 (98-107) mmol/L Carbon Dioxide 24 (21-32) mmol/L Anion Gap 10.0 (3-11) BUN 12 (7-18) mg/dl Creatinine 0.83 (0.6-1.2) mg/dl Est Cr Clr Drug Dosing Not Reportable Est GFR ( Amer) 85.2 Est GFR (Non-Af Amer) 73.5 BUN/Creatinine Ratio 14.0 (10-20) Glucose 94 (70-99) mg/dl POC Lactic Acid Alpesh 2.02 H (0.90-1.70) mmol/L Calcium 8.0 L (8.5-10.1) mg/dl Magnesium 2.0 (1.8-2.4) mg/dl Total Bilirubin 1.2 H (0.1-1) mg/dl AST 54 H (15-37) U/L ALT 25 (12-78) U/L Alkaline Phosphatase 88 (45-117) U/L POC Troponin I < 0.03 (0-0.045) ng/ml Troponin I (0-0.045) ng/ml NT-Pro-B Natriuret Pep 3759 H (0-900) pg/ml Total Protein 7.6 (6.4-8.2) gm/dl Albumin 3.0 L (3.4-5.0) gm/dl Globulin 4.6 H (2.5-4.0) gm/dl Albumin/Globulin Ratio 0.6 L (0.9-2) Urine Color Urine Appearance (Clear) Urine pH (4.5-7.5) Ur Specific Lovejoy (1.000-1.030) Urine Protein (Negative) Urine Glucose (UA) (Negative) Urine Ketones (Negative) Urine Blood (Negative) Urine Nitrite (Negative) Urine Bilirubin (Negative) Urine Urobilinogen (Negative) Ur Leukocyte Esterase (Negative) Urine WBC (Auto) (0-5) /hpf Urine RBC (Auto) (0-4) /hpf U Hyaline Cast (Auto) (0-5) /lpf U Epithel Cells (Auto) (0-5) /lpf Urine Bacteria (Auto) (Negative) Influenza Type A Ag (Neg) Influenza Type B Ag (Neg) 09/09/18 09/10/18 Range/Units 22:32 01:03 WBC (4.8-10.8) K/uL RBC (4.2-5.4) M/uL Hgb (12.0-16.0) g/dL Hct (37-47) % MCV (80-100) fL MCH (25-34) pg MCHC (32-36) g/dL RDW Std Deviation (36.4-46.3) fL RDW Coeff of Jennifer (11.5-14.5) % Plt Count (130-400) K/uL Immature Gran % (Auto) % Neut % (Auto) % Lymph % (Auto) % Putnam % (Auto) % Eos % (Auto) % Baso % (Auto) % Immature Gran # (Auto) (0.00-0.02) K/uL Neut # (Auto) (1.4-6.5) K/uL Lymph # (Auto) (1.2-3.4) K/uL Putnam # (Auto) (0.11-0.59) K/uL Eos # (Auto) (0-0.5) K/uL Baso # (Auto) (0-0.2) K/uL Platelet Estimate (Normal) Target Cells Ovalocytes PT (9.0-12.0) Seconds INR (0.9-1.1) APTT (21.0-31.0) Seconds PTT Ratio Sodium (136-145) mmol/L Potassium (3.5-5.1) mmol/L Chloride (98-107) mmol/L Carbon Dioxide (21-32) mmol/L Anion Gap (3-11) BUN (7-18) mg/dl Creatinine (0.6-1.2) mg/dl Est Cr Clr Drug Dosing Est GFR ( Amer) Est GFR (Non-Af Amer) BUN/Creatinine Ratio (10-20) Glucose (70-99) mg/dl POC Lactic Acid Alpesh (0.90-1.70) mmol/L Calcium (8.5-10.1) mg/dl Magnesium (1.8-2.4) mg/dl Total Bilirubin (0.1-1) mg/dl AST (15-37) U/L ALT (12-78) U/L Alkaline Phosphatase (45-117) U/L POC Troponin I (0-0.045) ng/ml Troponin I 0.036 (0-0.045) ng/ml NT-Pro-B Natriuret Pep (0-900) pg/ml Total Protein (6.4-8.2) gm/dl Albumin (3.4-5.0) gm/dl Globulin (2.5-4.0) gm/dl Albumin/Globulin Ratio (0.9-2) Urine Color Yellow Urine Appearance Clear (Clear) Urine pH 5.5 (4.5-7.5) Ur Specific Lovejoy 1.007 (1.000-1.030) Urine Protein Negative (Negative) Urine Glucose (UA) Negative (Negative) Urine Ketones Negative (Negative) Urine Blood Trace H (Negative) Urine Nitrite Negative (Negative) Urine Bilirubin Negative (Negative) Urine Urobilinogen Negative (Negative) Ur Leukocyte Esterase 1+ H (Negative) Urine WBC (Auto) 1-5 (0-5) /hpf Urine RBC (Auto) 0-4 (0-4) /hpf U Hyaline Cast (Auto) 0 (0-5) /lpf U Epithel Cells (Auto) 10-20 H (0-5) /lpf Urine Bacteria (Auto) Negative (Negative) Influenza Type A Ag (Neg) Influenza Type B Ag (Neg) MDM Narrative Prior records/ancillary studies reviewed. Triage Nursing notes reviewed. The patient's history was concerning for respiratory difficulties. Differential diagnosis: Etiologies such as infections, reactive airway disease, pneumonia, pneumothorax , COPD, CHF, cardiac ischemia, pulmonary embolism, musculoskeletal, gastrointestinal, as well as others were entertained. Physical examination: As above. ER treatment provided: Nebulizer, Lasix, Tamiflu, Rocephin, Zithromax On reassessment the patient felt better. Diagnostic interpretation by me: The electrocardiogram was irregularly irregular with minimal ST depression in the lateral leads with rate of 105. Impression atrial fibrillation with RVR The labs revealed positive influenza A. Elevated BNP. Negative troponin Imaging studies: Chest x-ray XR chest 1V portable CLINICAL HISTORY: 68 years-old Female presenting with Sepsis. TECHNIQUE: Portable upright AP view of the chest was obtained. COMPARISON: 06/17/2018. FINDINGS: Cardiac silhouette moderately enlarged. Mitral annular calcification. Pulmonary vascular prominence. Mild bronchial wall thickening suggested. Patchy basilar predominant opacity, asymmetrically more prominent on the right. No large effusion or pneumothorax. Osseous structures normal. Upper abdomen normal. IMPRESSION: 1. Cardiomegaly with volume overload/congestive change. 2. Asymmetric patchy basilar predominant density on the right. This may represent a focal infiltrate/pneumonia versus asymmetric edema. Electronically signed by: Bebeto Rivers M.D. Consultation: A consultation was placed with Dr Hennessy, hospitalist. The case was discussed and diagnostics were reviewed. The patient was evaluated in the ER for further treatment. This appears to be consistent with flu, pneumonia, CHF. Patient felt much better after the Lasix and the nebulizer. She was given antibiotics and Tamiflu. Patient has not been taking her medications as directed. She will be evaluated by medicine. Patient is agreeable to treatment plan of admission. by the evaluation outlined above emergent etiologies such as cardiac ischemia, pulmonary embolism, reactive airway disease, pneumothorax, musculoskeletal, serious bacterial infections, as well as others were deemed relatively unlikely. The pt informed about the findings as listed above. All questions were answered and pleased with the treatment. Case reviewed with my attending The chart was completed utilizing [email or web address] voice recognition software. Grammatical errors, random word insertions, pronoun errors, and incomplete sentences are an occassional consequence of this system due to software limitations, ambient noise, and hardware issues. Any formal questions or concerns about the content, text, or information contained within the body of this dictation should be directly addressed to the physician property management assistant for clarification. Impression & Plan Congestive heart failure, Influenza A, Pneumonia Discharge Plan Visit Data *Final* Discharge Date/Time: 09/10/18 00:09 Chief Complaint: Respiratory Problems Stated Complaint: dizzy ED Provider: Ramona Howell ED Midlevel Provider: Melissa Tim Discharge Problem: Congestive heart failure, Influenza A, Pneumonia Patient Disposition: Admitted As Inpatient Condition: Fair Discharge Instructions Interventions: ED Discharge Assessment Last Done: 09/10/18 00:09
[2018-09-10] MEDS ORDERED: METOPROLOL TARTRATE 50 MG TAB PO STA (00:54)
[2018-09-10] MEDS ORDERED: NITROGLYCERIN SL 0.4 MG/TAB TAB SL PRN (00:54)
[2018-09-10] MEDS ORDERED: ONDANSETRON INJ 2 MG/ML 2 ML VIAL IV PRN (00:54)
[2018-09-10] MEDS ORDERED: LEVALBUTEROL HCL 1.25 MG/3 ML NEB NEB PRN (00:54)
[2018-09-10] MEDS ORDERED: GUAIFENESIN/CODEINE 100MG/10MG 5ML UDC PO PRN (00:54)
[2018-09-10] MEDS ORDERED: ACETAMINOPHEN 325 MG TAB PO PRN (00:54)
--- NOTE | 2018-09-10 01:35 | Emergency Department Note ---
ED Visit Note I have personally seen and evaluated the patient with the PA. I agree with the diagnosis and management decisions and have been personally involved in the case. Please see Sarah Tim PA-C's notes for further details of the history, physical and visit. .
[2018-09-10] MEDS: DOXYCYCLINE HYCLATE 100 MG CAP PO SCH ×3 (01:42→21:13)
--- NOTE | 2018-09-10 01:56 | History and Physical Report ---
DATE OF ADMISSION: 09/09/2018 CHIEF COMPLAINT: Shortness of breath, dizziness. HISTORY OF PRESENT ILLNESS: This is a 68-year-old female with past medical history significant for hypertension, atrial fibrillation, obesity, diastolic CHF, dumping syndrome, chronic hepatitis C status post treatment, lower extremity venous insufficiency, presents with shortness of breath and cough and dizziness going on since of this month. The patient says she is only taking lisinopril and Lopressor at home now and full dose aspirin. She is supposed to be taking Lasix, but she has ran out of prescription 2 weeks ago and as she lives alone she did not have a drive. 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 She says since of this month, she started not feeling well, feeling congested, cough, dizziness, not able to ambulate much, feeling chills. She thought it will get better, but it was not getting better. Today, she was able to ambulate but still she has a lot of cough. She drove herself to the hospital and found to have flu, pneumonia, and CHF. After a dose of Lasix, she is feeling better. She is still coughing up yellowish phlegm, chest is sore from coughing. Denies any headache, no sore throat, no difficulty swallowing, has poor appetite since last few days. Normal bowel and bladder movements. No nausea, no abdominal pain, has chronic lower extremity edema, which has gotten a little bit worse in the last few days. ALLERGIES: MINERAL OIL AND NICKEL. PAST MEDICAL HISTORY: As mentioned above. PAST SURGICAL HISTORY: EGD with biopsy, gastric restrictive procedure, gastric stapling for obesity, abdominal hernia repair, bilateral radical mastectomy to prevent breast cancer, partial gastrectomy with gastrojejunostomy, incisional hernia repair. MEDICATIONS: Supposed to be on Lopressor 100 mg in a.m. and 50 mg in p.m., lisinopril 40 mg daily, Lasix 40 mg daily, Eliquis 5 mg p.o. b.i.d. FAMILY HISTORY: Father is . Father and mother had heart disorder. SOCIAL HISTORY: Single, no smoking history. No alcohol, no drug use. REVIEW OF SYMPTOMS: As per HPI. Rest of review of systems negative. PHYSICAL EXAMINATION: GENERAL: The patient is obese, not in acute distress. VITAL SIGNS: Temperature 36.7, pulse 120, respiratory rate 24, blood pressure 174/92, oxygen 94% room air. HEENT: No pallor, no icterus. NECK: No JVD, no neck masses, no carotid bruit. CARDIOVASCULAR: S1, S2 heard. Tachycardia. No murmurs. RESPIRATORY SYSTEM: Normal AP diameter. No accessory muscle use. Mild bibasilar crackles heard. No wheezing. ABDOMEN: Soft, bowel sounds present. Nontender. No distention. CENTRAL NERVOUS SYSTEM: Nonfocal. EXTREMITIES: Chronic lower extremity edema. chronic skin changes seen. LABORATORIES: WBC 3.8, [id number], hematocrit 42.1, platelets 137. PT 11, INR 1.1. APTT 28.5. Sodium 137, potassium 3.5, chloride 103, bicarbonate 24, BUN 12, creatinine 0.8, serum glucose 94, calcium 8, magnesium 2, total bilirubin 1.2, AST 54, ALT 22, ALT 25, alkaline phosphatase 88. Point of care troponin less than 0.03. BNP 3759. Urinalysis, trace blood, glucose esterase positive. Influenza positive for A. Chest x-ray with congestive changes, asymmetric patchy bibasilar predominant density in the right, represent pneumonia. EKG: Atrial fibrillation with rapid ventricular response with ST depressions in lateral leads with a rate of 105. ASSESSMENT AND PLAN: This is a 68-year-old female who presents with shortness of breath, found to be in congestive heart failure, pneumonia, flu, and rapid atrial fibrillation. 1. Shortness of breath mostly from pneumonia and flu and congestive heart failure. 2. Flu influenza positive. The patient did not take flu shot this year. Starting on Tamiflu. 3. Possible pneumonia on chest x-ray. Starting on Rocephin and doxycycline, follow the sputum cultures. 4. Acute on chronic diastolic congestive heart failure. The patient not taking Lasix for last 2 weeks , received a dose of Lasix in the Emergency Room. We will continue IV Lasix 40 daily, also follow serial cardiac enzymes and cardiology consult in morning. Close monitor. 5. History of atrial fibrillation. Rapid atrial fibrillation, on Lopressor at home, which patient was taking. The patient was supposed to be on Eliquis, but states she stopped taking it. She is taking full dose aspirin, but she reluctantly agrees to be on Eliquis, which we will restart.Heart rates improved after home Lopressor. We will also have a cardiology opinion. 7. Hypertension. Continue home dose of lisinopril and Lopressor. Monitor the blood pressure. 8. Lower extremity lymphedema, , Lasix as above. 9. History of hepatitis C, status post treatment. 10. History of peripheral artery disease, Supposed to follow with interventional cardiology for right superficial femoral artery occlusion. Not followed yet. 11. Deep vein thrombosis prophylaxis starting on Eliquis. DISPOSITION: Closely monitor in tele floor. Level 1 full code. MTDD
[2018-09-10 06:08] LABS: Mean Corpuscular Hgb Conc 33.7 g/dL (32-36)
[2018-09-10 06:15] LABS: Hematocrit (blood only) 36.5 % (37-47); Hemoglobin 12.3 g/dL (12.0-16.0); Mean Corpuscular Volume 77.3 fL (80-100); RDW Coefficient of Variation 20.1 % (11.5-14.5); RDW Standard Deviation 57.1 fL (36.4-46.3); Red Blood Count 4.72 M/uL (4.2-5.4); White Blood Count 3.75 K/uL (4.8-10.8)
[2018-09-10 06:36] LABS: BUN Creatinine Ratio 13.5 (10-20); Calcium 7.8 mg/dl (8.5-10.1); Creatinine Clr Calc Pharmacy 76.4 ml/min; Est GFR (African American) 86.4; Est GFR (Non-African American) 74.6; Magnesium 1.7 mg/dl (1.8-2.4); Potassium 3.2 mmol/L (3.5-5.1)
[2018-09-10] MEDS: METOPROLOL TARTRATE 100 MG TAB PO SCH (06:41)
[2018-09-10 06:47] LABS: Troponin I 0.051 ng/ml (0-0.045)
[2018-09-10 06:56] LABS: Anisocytosis Present; Basophils # (auto) 0.02 K/uL (0-0.2); Basophils % (auto) 0.5 %; Immature Granulocytes # (auto) 0.01 K/uL (0.00-0.02); Immature Granulocytes % (auto) 0.3 %; Lymphocytes # (auto) 0.75 K/uL (1.2-3.4); Monocytes % (auto) 10.7 %; Neutrophils # (auto) 2.57 K/uL (1.4-6.5); Neutrophils % (auto) 68.5 %; Ovalocytes 1+; Platelet Count 122 K/uL (130-400)
[2018-09-10] MEDS ORDERED: PNEUMOCOCCAL POLYSACCHARIDES 25 MCG/0.5 ML VIAL/SYR IM ONE (08:00)
[2018-09-10] MEDS ORDERED: PNEUMOCOCCAL ADMINISTRATION CHARGE ONE (08:00)
[2018-09-10] MEDS ORDERED: INFLUENZA ADMINISTRATION CHARGE ONE (08:00)
[2018-09-10] MEDS ORDERED: INFLUENZA VACCINE HIGH DOSE 65+ 0.5 ML SYR IM ONE (08:00)
[2018-09-10] MEDS ORDERED: POTASSIUM CHLORIDE 20 MEQ TABCR PO STA (08:03)
[2018-09-10] MEDS: APIXABAN 5 MG TABLET PO SCH ×2 (08:24→21:17)
[2018-09-10] MEDS: LISINOPRIL 40 MG TAB PO SCH (08:24)
[2018-09-10] MEDS: OSELTAMIVIR PHOSPHATE 75 MG CAP PO SCH ×2 (08:24→21:12)
[2018-09-10] MEDS ORDERED: FUROSEMIDE 40 MG in SYRINGE 0 ML IV SCH (09:00)
[2018-09-10] MEDS ORDERED: FUROSEMIDE 40 MG/4 ML VIAL IV SCH (09:00)
[2018-09-10] MEDS: MAGNESIUM OXIDE 400 MG TAB PO SCH (10:41)
--- NOTE | 2018-09-10 13:44 | Cardiology Consultation ---
Date of Consultation September 10, 2018 Assessment & Plan (1) Diastolic CHF, acute on chronic: Patient's current complaints exacerbated by a respiratory infection pneumonia, lapse in diuretic usage Recommend treating underlying respiratory infection as doing Switch diuretics to oral in a.m. given very brisk response to IV diuretics. Supplement potassium continue prehospital antihypertensive regimen (2) Influenza A: On therapy (3) Pneumonia: Treating as appropriate (4) Chronic atrial fibrillation: Patient has above he discontinued anticoagulation would recommend resuming Eliquis 5 mg twice per day (5) Hypertensive heart disease with chronic right-sided congestive heart failure : (6) Microcytic anemia: With mild pancytopenia. Will check iron studies as anticoagulations has been restored History of Present Illness Reason for Consultation: Congestive heart failure, medical management Requesting Physician: Terrell Castro MD Attending Physician: Terrell Castro MD History of Present Illness Patient is a 68-year-old female with past medical history which include 1. Chronic atrial fibrillation 2. Long-standing hypertension with hypertensive heart disease, diastolic heart failure, past hypertensive urgency 3. Chronic venous insufficiency Patient presents this admission noting worsening shortness of breath cough abdominal bloating and breathlessness 4-5 days per duration. Symptoms worsen to the point of difficulty breathing resulting in ER presentation. Chest x-ray demonstrated evidence of volume overload as well as patchy right basilar infiltrate. Serologic studies positive for influenza A. Patient has been treated with Tamiflu as well as diuretics with improved respiratory status. Denies any chest pains notes no tachypalpitations syncope or near syncope orthopnea or pedal edema other than current above complaints. Notes no bleeding difficulties. Freely admits she discontinued anticoagulation with Eliquis as well as stop taking furosemide in the last month's time for multiple reasons Allergies Allergy/AdvReac Type Severity Reaction Status Date / Time Penicillins Allergy Unknown POSSIBLE Verified 06/17/18 22:33 REACTION nickel AdvReac Severe ITCHING Unverified 06/17/18 22:33 gluten AdvReac Unknown Diarrhea Verified 06/18/18 15:39 Home Medications Home Medications Medication Instructions Recorded Confirmed Type Lopressor 50 mg PO DAILYBD 09/09/18 09/09/18 History Lopressor 100 mg PO DAILYBB 09/09/18 09/09/18 History apixaban [Eliquis] 5 mg PO BID 09/09/18 09/09/18 History aspirin 325 mg PO DAILY 09/09/18 09/09/18 History furosemide [Lasix] 40 mg PO DAILY 09/09/18 09/09/18 History lisinopril 40 mg PO DAILY 09/09/18 09/09/18 History Patient History Medical History Wrist sprain (Resolved) Facial abrasion (Resolved) Left shoulder pain (Resolved) Hypertension (Resolved) Dermatitis (Resolved) Fluid overload (Resolved) Atrial fibrillation (Resolved) Attention and concentration deficit Cancer Hypothyroidism Surgical History H/O bariatric surgery No pertinent past surgical history Family History Other No pertinent family history Social History Current Living Situation: Alone Other Information That Helps Us Care for You: No Feels Safe at Home: Yes Safety Concerns: Feels Safe At This Time Smoking Status: Never smoker Hx Alcohol Use: No Hx Substance Use: No Beliefs That Will Affect Care: None Communication Ability: Effective Review of Systems Review of systems are as per HPI and otherwise negative Physical Exam 2 Vital Signs (Past 24 Hours): Last Vital Signs Temp 36.9 C 09/10/18 12:01 Pulse 88 09/10/18 12:01 Resp 18 09/10/18 12:01 BP 129/61 09/10/18 12:01 Pulse Ox 96 09/10/18 12:01 Constitutional: WD/WN, vitals as above Eyes: PERRL, conjunctivae normal, anicteric sclerae ENMT: external ear and nose normal, oropharynx normal Neck: trachea midline, no thyromegaly Respiratory: Auscultation: + crackles (Right base few scattered wheezes with cough) Cardiovascular: Extremities: + edema (Mild bilateral edema with chronic indurated stasis changes) Irregularly irregular, no audible murmur Gastrointestinal (Abdomen): normal bowel sounds, soft, nontender, no hepatosplenomegaly Results & Data Laboratory Results Laboratory Results - last 24 hr 09/09/18 09/09/18 09/09/18 21:51 21:58 21:58 WBC 3.87 L RBC 5.32 Hgb 13.3 Hct 42.1 MCV 79.1 L MCH 25.0 MCHC 31.6 L RDW Std Deviation 59.3 H RDW Coeff of Jennifer 20.7 H Plt Count 130 Immature Gran % (Auto) 0.8 Neut % (Auto) 63.3 Lymph % (Auto) 22.2 [place] % (Auto) 12.1 Eos % (Auto) 0.0 Baso % (Auto) 1.6 Immature Gran # (Auto) 0.03 H Neut # (Auto) 2.45 Lymph # (Auto) 0.86 L [place] # (Auto) 0.47 Eos # (Auto) 0.00 Baso # (Auto) 0.06 Platelet Estimate Decreased Anisocytosis Target Cells 1+ Ovalocytes 1+ PT 11.0 INR 1.1 APTT 28.5 PTT Ratio 1.1 Sodium Potassium Chloride Carbon Dioxide Anion Gap BUN Creatinine Est Cr Clr Drug Dosing Est GFR ( Amer) Est GFR (Non-Af Amer) BUN/Creatinine Ratio Glucose POC Lactic Acid Alpesh Calcium Magnesium Total Bilirubin AST ALT Alkaline Phosphatase POC Troponin I Troponin I NT-Pro-B Natriuret Pep Total Protein Albumin Globulin Albumin/Globulin Ratio Urine Color Urine Appearance Urine pH Ur Specific [place] Urine Protein Urine Glucose (UA) Urine Ketones Urine Blood Urine Nitrite Urine Bilirubin Urine Urobilinogen Ur Leukocyte Esterase Urine WBC (Auto) Urine RBC (Auto) U Hyaline Cast (Auto) U Epithel Cells (Auto) Urine Bacteria (Auto) Influenza Type A Ag Pos for Influ A A* Influenza Type B Ag Neg for Influ B 09/09/18 09/09/18 09/09/18 21:58 22:12 22:13 WBC RBC Hgb Hct MCV MCH MCHC RDW Std Deviation RDW Coeff of Jennifer Plt Count Immature Gran % (Auto) Neut % (Auto) Lymph % (Auto) [place] % (Auto) Eos % (Auto) Baso % (Auto) Immature Gran # (Auto) Neut # (Auto) Lymph # (Auto) [place] # (Auto) Eos # (Auto) Baso # (Auto) Platelet Estimate Anisocytosis Target Cells Ovalocytes PT INR APTT PTT Ratio Sodium 137 Potassium 3.5 Chloride 103 Carbon Dioxide 24 Anion Gap 10.0 BUN 12 Creatinine 0.83 Est Cr Clr Drug Dosing Not Reportable Est GFR ( Amer) 85.2 Est GFR (Non-Af Amer) 73.5 BUN/Creatinine Ratio 14.0 Glucose 94 POC Lactic Acid Alpesh 2.02 H Calcium 8.0 L Magnesium 2.0 Total Bilirubin 1.2 H AST 54 H ALT 25 Alkaline Phosphatase 88 POC Troponin I < 0.03 Troponin I NT-Pro-B Natriuret Pep 3759 H Total Protein 7.6 Albumin 3.0 L Globulin 4.6 H Albumin/Globulin Ratio 0.6 L Urine Color Urine Appearance Urine pH Ur Specific [place] Urine Protein Urine Glucose (UA) Urine Ketones Urine Blood Urine Nitrite Urine Bilirubin Urine Urobilinogen Ur Leukocyte Esterase Urine WBC (Auto) Urine RBC (Auto) U Hyaline Cast (Auto) U Epithel Cells (Auto) Urine Bacteria (Auto) Influenza Type A Ag Influenza Type B Ag 09/09/18 09/10/18 09/10/18 22:32 01:03 05:32 WBC 3.75 L RBC 4.72 Hgb 12.3 Hct 36.5 L MCV 77.3 L MCH 26.1 MCHC 33.7 RDW Std Deviation 57.1 H RDW Coeff of Jennifer 20.1 H Plt Count 122 L Immature Gran % (Auto) 0.3 Neut % (Auto) 68.5 Lymph % (Auto) 20.0 [place] % (Auto) 10.7 Eos % (Auto) 0.0 Baso % (Auto) 0.5 Immature Gran # (Auto) 0.01 Neut # (Auto) 2.57 Lymph # (Auto) 0.75 L [place] # (Auto) 0.40 Eos # (Auto) 0.00 Baso # (Auto) 0.02 Platelet Estimate Decreased Anisocytosis Present Target Cells Ovalocytes 1+ PT INR APTT PTT Ratio Sodium Potassium Chloride Carbon Dioxide Anion Gap BUN Creatinine Est Cr Clr Drug Dosing Est GFR ( Amer) Est GFR (Non-Af Amer) BUN/Creatinine Ratio Glucose POC Lactic Acid Alpesh Calcium Magnesium Total Bilirubin AST ALT Alkaline Phosphatase POC Troponin I Troponin I 0.036 NT-Pro-B Natriuret Pep Total Protein Albumin Globulin Albumin/Globulin Ratio Urine Color Yellow Urine Appearance Clear Urine pH 5.5 Ur Specific [place] 1.007 Urine Protein Negative Urine Glucose (UA) Negative Urine Ketones Negative Urine Blood Trace H Urine Nitrite Negative Urine Bilirubin Negative Urine Urobilinogen Negative Ur Leukocyte Esterase 1+ H Urine WBC (Auto) 1-5 Urine RBC (Auto) 0-4 U Hyaline Cast (Auto) 0 U Epithel Cells (Auto) 10-20 H Urine Bacteria (Auto) Negative Influenza Type A Ag Influenza Type B Ag 09/10/18 09/10/18 05:32 12:54 WBC RBC Hgb Hct MCV MCH MCHC RDW Std Deviation RDW Coeff of Jennifer Plt Count Immature Gran % (Auto) Neut % (Auto) Lymph % (Auto) [place] % (Auto) Eos % (Auto) Baso % (Auto) Immature Gran # (Auto) Neut # (Auto) Lymph # (Auto) [place] # (Auto) Eos # (Auto) Baso # (Auto) Platelet Estimate Anisocytosis Target Cells Ovalocytes PT INR APTT PTT Ratio Sodium 137 Potassium 3.2 L Chloride 100 Carbon Dioxide 27 Anion Gap 10.0 BUN 11 Creatinine 0.82 Est Cr Clr Drug Dosing 76.4 Est GFR ( Amer) 86.4 Est GFR (Non-Af Amer) 74.6 BUN/Creatinine Ratio 13.5 Glucose 104 H POC Lactic Acid Alpesh Calcium 7.8 L Magnesium 1.7 L Total Bilirubin AST ALT Alkaline Phosphatase POC Troponin I Troponin I 0.051 H* 0.038 NT-Pro-B Natriuret Pep Total Protein Albumin Globulin Albumin/Globulin Ratio Urine Color Urine Appearance Urine pH Ur Specific [place] Urine Protein Urine Glucose (UA) Urine Ketones Urine Blood Urine Nitrite Urine Bilirubin Urine Urobilinogen Ur Leukocyte Esterase Urine WBC (Auto) Urine RBC (Auto) U Hyaline Cast (Auto) U Epithel Cells (Auto) Urine Bacteria (Auto) Influenza Type A Ag Influenza Type B Ag Diagnostic Findings EKG atrial fibrillation with left hypertrophy and strain pattern similar to prior tracings
[2018-09-10 15:04] LABS: Ferritin 266.2 ng/ml (8-388)
[2018-09-10] MEDS ORDERED: METOPROLOL TARTRATE 50 MG TAB PO SCH (15:30)
--- NOTE | 2018-09-10 17:29 | Hospitalist Progress Note ---
Date of Service September 10, 2018 Assessment & Plan (1) Influenza A: 68-year-old female who presents with shortness of breath, found to be in congestive heart failure, pneumonia, flu, and rapid atrial fibrillation. Admission CXR 1. Cardiomegaly with volume overload/congestive change. 2. Asymmetric patchy basilar predominant density on the right. This may represent a focal infiltrate/pneumonia versus asymmetric edema. Possible pneumonia on chest x-ray -on Rocephin and doxycycline, continue Influenza type A positive -oseltamvir 75 mg BID acute on chronic Diastolic Congestive Heart Failure / Hypertensive heart disease with chronic right-sided congestive heart failure -Patient's current complaints exacerbated by a respiratory infection pneumonia, lapse in diuretic usage -as per cardiology service will attempt to transition to oral Lasix on 09/11/18 Hypertension -Continue home dose of lisinopril -continue metoprolol Chronic atrial fibrillation -initially with atrial fibrillation and rapid ventricular response -heart rate better controlled now -continue metoprolol -cardiology service recommending that patient should be on Eliquis 5 mg twice per day; continue Eliquis Lower extremity lymphedema -Lasix as above. -History of peripheral artery disease, Supposed to follow with interventional cardiology for right superficial femoral artery occlusion. Not followed yet. Deep vein thrombosis prophylaxis: Eliquis. Subjective Patient seen and examined earlier Feels shortness of breath. Able to speak in full sentences of room air. denies chest pain. has leg swelling. denies abdominal pain or vomiting. Physical Exam 2 Vital Signs (Past 24 Hours): Last Vital Signs Temp 36.6 C 09/10/18 15:48 Pulse 79 09/10/18 15:48 Resp 18 09/10/18 15:48 BP 124/88 09/10/18 15:48 Pulse Ox 98 09/10/18 15:48 Physical Exam: WD/WN, vitals as above PERRL, conjunctivae normal, anicteric sclerae external ear and nose normal, oropharynx normal trachea midline, no thyromegaly Lungs: + crackles (Right base few scattered wheezes with cough) Cardiovascular: Irregularly irregular, no audible murmur Gastrointestinal (Abdomen): normal bowel sounds, soft, nontender, no hepatosplenomegaly Extremities: + edema (Mild bilateral edema with chronic indurated stasis changes )
[2018-09-10] MEDS ORDERED: cefTRIAXone SODIUM 1,000 MG in DEXTROSE 5% 50 ML IV SCH (22:00)
[2018-09-11] MEDS: METOPROLOL TARTRATE 100 MG TAB PO SCH (06:38)
[2018-09-11 08:16] LABS: Albumin Level 2.5 gm/dl (3.4-5.0); BUN Creatinine Ratio 15.1 (10-20); Calcium 7.3 mg/dl (8.5-10.1); Creatinine Clr Calc Pharmacy 79.1 ml/min; Est GFR (African American) 90.4; Magnesium 1.8 mg/dl (1.8-2.4); Potassium 3.2 mmol/L (3.5-5.1)
[2018-09-11 08:19] LABS: Albumin Globulin Ratio 0.6 (0.9-2); Bilirubin,Total 1.1 mg/dl (0.1-1); Globulin 4.3 gm/dl (2.5-4.0); Total Protein 6.8 gm/dl (6.4-8.2)
[2018-09-11 08:20] LABS: Hematocrit (blood only) 39.7 % (37-47); Hemoglobin 12.4 g/dL (12.0-16.0); Mean Corpuscular Volume 78.5 fL (80-100); RDW Coefficient of Variation 20.3 % (11.5-14.5); RDW Standard Deviation 58.1 fL (36.4-46.3); Red Blood Count 5.06 M/uL (4.2-5.4); White Blood Count 3.17 K/uL (4.8-10.8)
[2018-09-11 08:36] LABS: Mean Corpuscular Hgb Conc 31.2 g/dL (32-36); Platelet Count 110 K/uL (130-400)
[2018-09-11 08:37] LABS: Anisocytosis Present; Basophils # (auto) 0.04 K/uL (0-0.2); Basophils % (auto) 1.3 %; Eosinophils # (auto) 0.01 K/uL (0-0.5); Eosinophils % (auto) 0.3 %; Lymphocytes # (auto) 1.17 K/uL (1.2-3.4); Lymphocytes % (auto) 36.9 %; Monocytes # (auto) 0.45 K/uL (0.11-0.59); Monocytes % (auto) 14.2 %; Neutrophils % (auto) 47.3 %; Ovalocytes 1+
[2018-09-11] MEDS ORDERED: FUROSEMIDE 40 MG TAB PO SCH (09:00)
[2018-09-11] MEDS: DOXYCYCLINE HYCLATE 100 MG CAP PO SCH (09:10)
[2018-09-11] MEDS: OSELTAMIVIR PHOSPHATE 75 MG CAP PO SCH (09:10)
[2018-09-11] MEDS: LISINOPRIL 40 MG TAB PO SCH (09:10)
[2018-09-11] MEDS: APIXABAN 5 MG TABLET PO SCH (09:10)
--- NOTE | 2018-09-11 10:31 | Cardiology Progress Note ---
Date of Service September 11, 2018 Assessment & Plan (1) Diastolic CHF, acute on chronic: Patient's current complaints exacerbated by a respiratory infection pneumonia, lapse in diuretic usage Recommend treating underlying respiratory infection as doing Switch diuretics to oral in a.m. given very brisk response to IV diuretics. Supplement potassium continue prehospital antihypertensive regimen (2) Influenza A: On therapy (3) Pneumonia: Treating as appropriate (4) Chronic atrial fibrillation: Patient has above he discontinued anticoagulation would recommend resuming Eliquis 5 mg twice per day (5) Hypertensive heart disease with chronic right-sided congestive heart failure : (6) Microcytic anemia: With mild pancytopenia question influenza induced Iron studies are low patient. Patient has had difficulties with iron deficiency possibly in association of past gastric bypass surgery in the past has required iron transfusion. Will likely need supplementation Physical Exam 2 Vital Signs (Past 24 Hours): Last Vital Signs Temp 36.4 C L 09/11/18 07:23 Pulse 63 09/11/18 07:23 Resp 18 09/11/18 07:23 BP 144/84 H 09/11/18 07:23 Pulse Ox 93 09/11/18 07:23 Constitutional: WD/WN, vitals as above Eyes: PERRL, conjunctivae normal, anicteric sclerae ENMT: external ear and nose normal, oropharynx normal Neck: trachea midline, no thyromegaly Respiratory: Auscultation: + crackles (Right base few scattered wheezes with cough) Cardiovascular: Extremities: + edema (Mild bilateral edema with chronic indurated stasis changes) Gastrointestinal (Abdomen): normal bowel sounds, soft, nontender, no hepatosplenomegaly
[2018-09-11] MEDS ORDERED: POTASSIUM CHLORIDE 20 MEQ TABCR PO ONE (12:00)
[2018-09-11] MEDS ORDERED: AMOXICILLIN/CLAVULANATE 875 MG TAB PO SCH (12:00)
[2018-09-11] MEDS ORDERED: IRON SUCROSE 100 MG in 0.9 % SODIUM CHLORIDE 100 ML IV ONE (12:00)
[2018-09-11] MEDS: MAGNESIUM OXIDE 400 MG TAB PO SCH (12:13)
--- NOTE | 2018-09-11 14:52 | Hospitalist Progress Note ---
Date of Service September 11, 2018 Assessment & Plan (1) Influenza A: 68-year-old female who presents with shortness of breath, found to be in congestive heart failure, pneumonia, flu, and rapid atrial fibrillation. Admission CXR 1. Cardiomegaly with volume overload/congestive change. 2. Asymmetric patchy basilar predominant density on the right. This may represent a focal infiltrate/pneumonia versus asymmetric edema. Possible pneumonia on chest x-ray and on exam (pneumonia of both lower lobes) -was initially on Rocephin and doxycycline -these antibiotics stopper on 09/11/18 and Patient to take Augmentin twice a day for 7 days for possible pneumonia Flu(Influenza type A positive) -continue oseltamvir 75 mg BID -Prescription for guaifenesine/codeine made to treat coughing acute on chronic Diastolic Congestive Heart Failure / Hypertensive heart disease with chronic right-sided congestive heart failure -Patient's current complaints exacerbated by a respiratory infection pneumonia, lapse in diuretic usage -as per cardiology service will attempt to transition to oral Lasix on 09/11/18 -continue oral Lasix 40 mg daily Hypertension -Continue home dose of lisinopril -continue metoprolol Chronic atrial fibrillation -initially with atrial fibrillation and rapid ventricular response -heart rate better controlled now -continue metoprolol 100 mg in the morning and and 50 mg in the evening every day -cardiology service recommending that patient should be on Eliquis 5 mg twice per day; continue Eliquis Lower extremity lymphedema -continue oral Lasix 40 mg daily -History of peripheral artery disease, Supposed to follow with interventional cardiology for right superficial femoral artery occlusion. Not followed yet. anemia stable chronic anemia given Venofer 100 mg on 09/11/18, patient given prescriptions for oral ferrous iron supplements hypomagnesemia, hypokalemia given magnesium and potassium supplements inpatient and with discharge prescriptions Deep vein thrombosis prophylaxis: Eliquis. Discharge Diagnosis Flu (Influenza A), acute on chronic diastolic congestive heart failure, possible pneumonia of both lower lobes, chronic atrial fibrillation, hypomagnesemia, hypokalemia, anemia Discharge Instructions Patient should follow up with 09/16/2018 10:20 AM Monik Montiel MD [facility] Patient to take continue oseltamvir 75 mg BID for Influenza Patient to take Augmentin twice a day for 7 days for possible pneumonia Prescription for guaifenesine/codeine made to treat coughing continue metoprolol 100 mg in the morning and and 50 mg in the evening every day continue oral Lasix 40 mg daily Take magnesium oxide 400 mg daily and potassium 10 mEq daily for the next 10 days Take oral ferrous iron supplement daily Take eliquis (apixaban) 5 mg BID Subjective Patient seen and examined earlier Able to speak in full sentences of room air, ambulating with walker on room air denies chest pain. denies abdominal pain or vomiting. Physical Exam 2 Vital Signs (Past 24 Hours): Last Vital Signs Temp 36.4 C L 09/11/18 14:49 Pulse 63 09/11/18 14:49 Resp 18 09/11/18 14:49 BP 152/73 H 09/11/18 14:49 Pulse Ox 93 09/11/18 14:49 Constitutional: WD/WN, vitals as above Eyes: PERRL, conjunctivae normal, anicteric sclerae ENMT: external ear and nose normal, oropharynx normal Neck: normal visual inspection and trachea midline Cardiovascular: Rate/Rhythm: + bradycardic (irregular rhythm) Gastrointestinal (Abdomen): normal bowel sounds, soft, nontender, no hepatosplenomegaly Musculoskeletal: Head/Neck/Chest: normocephalic and head atraumatic Neurologic: PERRL, EOMI, accommodation nl, no face palsy, no dysarthria CN' s II-XI intact bilaterally Psychiatric: A+Ox3, euthymic affect
--- NOTE | 2018-09-11 15:07 | Discharge Summary ---
Date of Service September 11, 2018 Admission HPI Per Admitting Provider HISTORY OF PRESENT ILLNESS: This is a 68-year-old female with past medical history significant for hypertension, atrial fibrillation, obesity, diastolic CHF, dumping syndrome, chronic hepatitis C status post treatment, lower extremity venous insufficiency, presents with shortness of breath and cough and dizziness going on since of this month. The patient says she is only taking lisinopril and Lopressor at home now and full dose aspirin. She is supposed to be taking Lasix, but she has ran out of prescription 2 weeks ago and as she lives alone she did not have a drive. She could not go and picker tender her prescription so she has not taken Lasix since last 2 weeks. She says since of this month, she started not feeling well, feeling congested, cough, dizziness, not able to ambulate much, feeling chills. She thought it will get better, but it was not getting better. Today, she was able to ambulate but still she has a lot of cough. She drove herself to the hospital and found to have flu, pneumonia, and CHF. After a dose of Lasix, she is feeling better. She is still coughing up yellowish phlegm, chest is sore from coughing. Denies any headache, no sore throat, no difficulty swallowing, has poor appetite since last few days. Normal bowel and bladder movements. No nausea, no abdominal pain, has chronic lower extremity edema, which has gotten a little bit worse in the last few days. ALLERGIES: MINERAL OIL AND NICKEL. PAST MEDICAL HISTORY: As mentioned above. PAST SURGICAL HISTORY: EGD with biopsy, gastric restrictive procedure, gastric stapling for obesity, abdominal hernia repair, bilateral radical mastectomy to prevent breast cancer, partial gastrectomy with gastrojejunostomy, incisional hernia repair. MEDICATIONS: Supposed to be on Lopressor 100 mg in a.m. and 50 mg in p.m., lisinopril 40 mg daily, Lasix 40 mg daily, Eliquis 5 mg p.o. b.i.d. FAMILY HISTORY: Father is . Father and mother had heart disorder. SOCIAL HISTORY: Single, no smoking history. No alcohol, no drug use. REVIEW OF SYMPTOMS: As per HPI. Rest of review of systems negative. Admission Exam Per Admitting Provider PHYSICAL EXAMINATION: GENERAL: The patient is obese, not in acute distress. VITAL SIGNS: Temperature 36.7, pulse 120, respiratory rate 24, blood pressure 174/92, oxygen 94% room air. HEENT: No pallor, no icterus. NECK: No JVD, no neck masses, no carotid bruit. CARDIOVASCULAR: S1, S2 heard. Tachycardia. No murmurs. RESPIRATORY SYSTEM: Normal AP diameter. No accessory muscle use. Mild bibasilar crackles heard. No wheezing. ABDOMEN: Soft, bowel sounds present. Nontender. No distention. CENTRAL NERVOUS SYSTEM: Nonfocal. EXTREMITIES: Chronic lower extremity edema. chronic skin changes seen. Principal Diagnosis Flu (Influenza A), acute on chronic diastolic congestive heart failure, possible pneumonia of both lower lobes, chronic atrial fibrillation, hypomagnesemia, hypokalemia, anemia Discharge Exam Constitutional WD/WN, vitals as above Eyes PERRL, conjunctivae normal, anicteric sclerae ENMT external ear and nose normal, oropharynx normal Neck normal visual inspection and trachea midline Respiratory normal respiratory effort Auscultation: + crackles Cardiovascular Rate/Rhythm: + bradycardic (irregular rhythm) Gastrointestinal (Abdomen) normal bowel sounds, soft, nontender, no hepatosplenomegaly Musculoskeletal Head/Neck/Chest: normocephalic and head atraumatic Neurologic PERRL, EOMI, accommodation nl, no face palsy, no dysarthria CN's II-XI intact bilaterally Psychiatric A+Ox3, euthymic affect Discharge Data Allergies Allergy/AdvReac Type Severity Reaction Status Date / Time Penicillins Allergy Unknown POSSIBLE Verified 06/17/18 22:33 REACTION nickel AdvReac Severe ITCHING Unverified 06/17/18 22:33 gluten AdvReac Unknown Diarrhea Verified 06/18/18 15:39 Consultations 09/09/18 22:52 ED Decision to Admit Stat 09/10/18 00:54 Consult Case Management - Discharge Planning Routine 09/10/18 08:00 Consult Cardiology Routine Hospital Course (1) Influenza A: 68-year-old female who presents with shortness of breath, found to be in congestive heart failure, pneumonia, flu, and rapid atrial fibrillation. Admission CXR 1. Cardiomegaly with volume overload/congestive change. 2. Asymmetric patchy basilar predominant density on the right. This may represent a focal infiltrate/pneumonia versus asymmetric edema. Possible pneumonia on chest x-ray and on exam (pneumonia of both lower lobes) -was initially on Rocephin and doxycycline -these antibiotics stopper on 09/11/18 and Patient to take Augmentin twice a day for 7 days for possible pneumonia Flu(Influenza type A positive) -continue oseltamvir 75 mg BID -Prescription for guaifenesine/codeine made to treat coughing acute on chronic Diastolic Congestive Heart Failure / Hypertensive heart disease with chronic right-sided congestive heart failure -Patient's current complaints exacerbated by a respiratory infection pneumonia, lapse in diuretic usage -as per cardiology service will attempt to transition to oral Lasix on 09/11/18 -continue oral Lasix 40 mg daily Hypertension -Continue home dose of lisinopril -continue metoprolol Chronic atrial fibrillation -initially with atrial fibrillation and rapid ventricular response -heart rate better controlled now -continue metoprolol 100 mg in the morning and and 50 mg in the evening every day -cardiology service recommending that patient should be on Eliquis 5 mg twice per day; continue Eliquis Lower extremity lymphedema -continue oral Lasix 40 mg daily -History of peripheral artery disease, Supposed to follow with interventional cardiology for right superficial femoral artery occlusion. Not followed yet. anemia stable chronic anemia given Venofer 100 mg on 09/11/18, patient given prescriptions for oral ferrous iron supplements hypomagnesemia, hypokalemia given magnesium and potassium supplements inpatient and with discharge prescriptions Deep vein thrombosis prophylaxis: Eliquis. Discharge Diagnosis Flu (Influenza A), acute on chronic diastolic congestive heart failure, possible pneumonia of both lower lobes, chronic atrial fibrillation, hypomagnesemia, hypokalemia, anemia Discharge Instructions Patient should follow up with 09/16/2018 10:20 AM Monik Montiel MD [facility] Patient to take continue oseltamvir 75 mg BID for Influenza Patient to take Augmentin twice a day for 7 days for possible pneumonia Prescription for guaifenesine/codeine made to treat coughing continue metoprolol 100 mg in the morning and and 50 mg in the evening every day continue oral Lasix 40 mg daily Take magnesium oxide 400 mg daily and potassium 10 mEq daily for the next 10 days Take oral ferrous iron supplement daily Take eliquis (apixaban) 5 mg BID Total Time Total Time Spent Total Time Spent (In Minutes): 40 minutes Total Time Includes: Examination of the Patient, Discharge Planning and Medication Reconciliation Discharge Plan Discharge Items Patient Disposition: Home - Home Health Services Reason For Visit: SOB, COUGH, DIZZY Discharge Diagnosis: Flu (Influenza A), acute on chronic diastolic congestive heart failure, possible pneumonia of both lower lobes, chronic atrial fibrillation, hypomagnesemia, hypokalemiam hypokalemia, hypomagnesemia, anemia Condition: Fair Discharge Goals: Improve disease control Activity: Resume your previous activity Non-emergency contact: Primary Care Provider Call non-emergency contact if: you have any medication questions Diet: Heart Healthy and Low Sodium (2gm) Addtl Provider Instructions: Discharge Instructions Patient should follow up with 09/16/2018 10:20 AM Monik Montiel MD [facility] Patient to take continue oseltamvir 75 mg BID for Influenza Patient to take Augmentin twice a day for 7 days for possible pneumonia Prescription for guaifenesine/codeine made to treat coughing continue metoprolol 100 mg in the morning and and 50 mg in the evening every day continue oral Lasix 40 mg daily continue lisinopril 40 mg daily Take magnesium oxide 400 mg daily and potassium 10 mEq daily for the next 10 days Take oral ferrous iron supplement daily Take eliquis (apixaban) 5 mg BID Prescriptions: New furosemide 40 mg Tablet 40 mg PO QAM 30 Days Qty: 30 RF: 0 magnesium oxide 400 mg (241.3 mg magnesium) Tablet 400 mg PO DAILY@1100 10 Days Qty: 10 RF: 0 oseltamivir [Tamiflu] 75 mg Capsule 75 mg PO BID 5 Days Qty: 10 RF: 0 codeine-guaifenesin [Cheratussin AC] 10-100 mg/5 mL Liquid 5 ml PO Q6H PRN (Reason: cough) 5 Days Qty: 100 RF: 0 ferrous sulfate 325 mg (65 mg iron) Tablet,Delayed Release (Dr/Ec) 325 mg PO DAILY@1000 30 Days Qty: 30 RF: 0 lisinopril [Zestril] 40 mg Tablet 40 mg PO DAILY 30 Days Qty: 30 RF: 0 amoxicillin-pot clavulanate 875-125 mg Tablet 1 tab PO BIDM 7 Days Qty: 14 RF: 0 potassium chloride [Klor-Con M10] 10 mEq Tablet,Er Particles/Crystals 10 meq PO DAILY 10 Days Qty: 10 RF: 0 metoprolol tartrate 100 mg Tablet 100 mg PO DAILYBB 30 Days Qty: 30 RF: 0 metoprolol tartrate 50 mg Tablet 50 mg PO DAILYBD 30 Days Qty: 30 RF: 0 apixaban [Eliquis] 5 mg Tablet 5 mg PO BID 30 Days Qty: 60 RF: 0 Continue apixaban [Eliquis] 5 mg Tablet 5 mg PO BID RF: 0 Lopressor 50 mg 100 mg PO DAILYBB RF: 0 Lopressor 50 mg 50 mg PO DAILYBD RF: 0 Discontinued aspirin 325 mg Tablet,Delayed Release (Dr/Ec) 325 mg PO DAILY RF: 0 lisinopril 40 mg Tablet 40 mg PO DAILY RF: 0 furosemide [Lasix] 40 mg Tablet 40 mg PO DAILY RF: 0 Visit Report Forms: [facility] Stand-Alone Forms: [facility] Discharge Orders: Discharge Order (Routine); Ordered 09/11/18 Ordered By: Terrell Castro Admission Data Admit Date/Time: 09/09/18 23:32 Attending Provider: Terrell Castro Admit Provider: Alex Hennessy Primary Care Provider: Sheila Ocasio Other Providers: Alex Hennessy ; Francis Barker ; Simón Bobo ; Scotty Enamorado ; Temo Ocasio ; YawArsh porter ; Silverio Gonzalez ; Dania Bhat ; Sury Viramontes Service: Medical
[2018-09-11 15:53] VITALS: BP 142/87; PULSE 75; TEMP 97.9; O2SAT 91
[2018-09-12] MEDS ORDERED: POTASSIUM CHLORIDE 10 MEQ TABCR PO SCH (09:00)
[2018-09-12] MEDS ORDERED: FERROUS SULFATE 325 MG TAB PO SCH (10:00)
== END 2018-09-11 16:43 | disposition home health service (06) | DRG 193 ==
LOC: ED 19:12 → 2S 23:32 → 4E 09-10 17:43